=== PATIENT | female | born 1940 | race Caucasian/White ===

== ENCOUNTER → 2016-05-18 | Outpatient (CLI) | payer BC ==
[~2016-05-18] MED LIST: DMD20 PO; LISI-461 PO; MULT-188 PO; VERA1TAB PO
[2016-05-18 16:48] LABS: HEMATOCRIT 38.1 % (37-47); MEAN CELL VOLUME 84.3 fL (80-100); MEAN CORPUSCULAR HEMOGLOBIN 29.4 pg (25-34); MEAN CORPUSCULAR HGB CONC 34.9 g/dl (32-36); MEAN PLATELET VOLUME 10.3 fL (7.4-10.4); PLATELET COUNT 208 K/uL (130-400); RED BLOOD COUNT 4.52 M/uL (4.2-5.4); WHITE BLOOD COUNT 6.98 K/uL (4.8-10.8)
== END | disposition home or self-care (01) ==
LOC: C.LAB1850 15:16
PROVIDERS: ATTEND Internal Medicine
DX: K62.5 Hemorrhage of anus and rectum (principal)

== ENCOUNTER → 2016-12-09 | Outpatient (CLI) | payer BC ==
--- NOTE | 2016-12-10 13:54 | MAMMOGRAPHY REPORT ---
BILATERAL DIGITAL SCREENING MAMMOGRAM WITH CAD: 12/09/2016 CLINICAL HISTORY: Routine screening. Patient has no complaints. TECHNIQUE: Bilateral CC and MLO views were obtained. Current study was also evaluated with a Compute r Aided Detection (CAD) system. COMPARISON: Comparison is made to exams dated: 12/09/2015 mammogram, 11/28/2014 mammogram, 11/23/2013 m ammogram, 10/25/2012 mammogram, 10/07/2011 mammogram, and 09/16/2010 mammogram - [facility] nter. BREAST COMPOSITION: There are scattered areas of fibroglandular density in both breasts. FINDINGS: There are stable benign lymph nodes in the upper outer posterior right breast. No suspicio us mass, architectural distortion or cluster of suspicious microcalcifications is seen. IMPRESSION: ACR BI-RADS CATEGORY 1: NEGATIVE There is no mammographic evidence of malignancy. A 1 year screening mammogram is recommended. The pa tient will receive written notification of the results. Approximately 10% of breast cancers are not detected with mammography. A negative mammographic report should not delay biopsy if a clinically suggestive mass is present. Cristy Olivares M.D. ay/:12/09/2016 14:03:30 Manager News: Tennille MAURICE([place])([place])([place]), [facility] letter sent: Normal 1/2 BI-RADS Code: ACR BI-RADS Category 1: Negative
== END | disposition home or self-care (01) ==
LOC: C.MAMM 13:19
PROVIDERS: ATTEND Obstetrics & Gynecology
DX: Z12.31 Encounter for screening mammogram for malignant neoplasm of breast (principal)

== ENCOUNTER → 2017-05-10 | Outpatient (CLI) | payer BC ==
--- NOTE | 2017-05-10 14:56 | DIAGNOSTIC IMAGING REPORT ---
L HAND MIN 3 VIEWS ROUTINE, R HAND MIN 3 VIEWS ROUTINE CLINICAL HISTORY: 77 years-old Female presenting with M79.644 Bilateral thumb [id number]. TECHNIQUE: Frontal, oblique, and lateral views of the right and left hands were obtained. COMPARISON: None. FINDINGS: Right hand: Osteophytosis, mild joint space loss, and subchondral sclerosis and cystic change evident at the first carpometacarpal articulation. Osteophytosis and joint space loss also evident at the distal interphalangeal joint of the second finger. No acute fracture or malalignment. No radiographic soft tissue abnormality. Left hand: Osteophytosis and joint space loss at the distal interphalangeal joint of the second finger. Only minimal osteophytosis and joint space loss evident at the first carpometacarpal articulation. No acute fracture or malalignment. No radiographic soft tissue abnormality. IMPRESSION: 1. Degenerative changes at the first carpometacarpal articulations in the bilateral hands, right greater than left, characteristic of posterior arthritis. 2. Degenerative changes of the distal interphalangeal joints of the second fingers, also characteristic of osteoarthritis. Electronically signed by: Bird Zacarias M.D. 05/10/2017 2:55 PM Dictated Date/Time: 05/10/2017 2:53 PM
== END | disposition home or self-care (01) ==
LOC: C.RAD1850 14:40
PROVIDERS: ATTEND Internal Medicine
DX: M79.644 Pain in right finger(s) (principal); M79.645 Pain in left finger(s); M19.041 Primary osteoarthritis, right hand; M19.042 Primary osteoarthritis, left hand; M18.0 Bilateral primary osteoarthritis of first carpometacarpal joints

== ENCOUNTER 2021-08-16 15:59 | Inpatient (IN) ==
--- NOTE | 2021-08-16 16:02 | Emergency Department Note ---
Impression & Plan Rhabdomyolysis, Fall, Elevated troponin I level ED Provider Note NAME: CESILIA DUNHAM AGE: 81 SEX: F : 1940 ARRIVES VIA: Ambulance INFORMANT: [Patient][, ] ED PROVIDER(S): [Temo Marc MD] Chief Complaint: Fall HPI: Patient was portably found down after a fall that occurred around 10 AM. Patient states that she went out to walk her dog as she normally does but it is a fairly large dog [place] As[place]io breed and pulled her down and sometimes the dog sees deer. Patient reportedly had intermittent reports of some mid abdominal back pain or event left hip pain. Patient currently only complains of abdominal discomfort. No nausea or vomiting. Patient denies any known LOC. Patient Nuys any chest pains or shortness of breath. Patient denies any back pain headache or neck pain. Patient does not believe that she takes blood thinning medications. Patient did not have a BSG checked by EMS prior to arrival. In the room it is 164. I did reach out and speak with the patient's daughter Earnestine was currently in [place]. She states that she believes that the dog chased after a rabbit earlier this morning. The patient's son is supposed to arrive soon thereafter. She does not believe that the patient takes any blood thinning medications. She also states that the patient may have some early signs of dementia and does have some pending neuropsych evaluations as well as pending brain MRI. She does state that the patient does have good and bad days. ROS: See HPI for pertinent positives and negatives. A total of 10 systems were reviewed and otherwise negative. Past medical history: See below Surgical history: See below Social history: See below Physical Exam: GENERAL: Dirt noted over the face, right-sided periorbital ecchymosis but without obvious proptosis. C-collar in place. EYE EXAM: Normal conjunctiva. PERRL, no anisocoria and EOM's grossly intact w/o pain. right-sided periorbital ecchymosis but without obvious proptosis. [OROPHARYNX: Moist mucus membranes. Grossly normal dentition. [No exudate, posterior pharynx is clear, no tonsillar/uvular deviation or swelling. No cervical adenopathy, no submental, submandibular, or sublingual swelling.]] NECK: Supple, no nuchal rigidity, no adenopathy, non-tender. No signs of meningismus. Trachea midline, no midline C-spine TTP. Chest: No reproducible chest wall pain for the chest or bruising. LUNGS: Clear to auscultation. Normal chest wall mechanics. HEART: NSR, no MRG. ABDOMEN: Abdomen soft, mild discomfort in the mid abdomen, not peritonitic, normo-active bowel sounds, no masses, no rebound or guarding. BACK: Denies midline thoracic and lumbar discomfort. SKIN: Skin discoloration and bruising to the right elbow and forearm. UPPER EXTREMITIES: Upper extremities are grossly normal. Good range of motion, slight discomfort to the right forearm and elbow but without obvious deformity. LOWER EXTREMITIES: Mild discomfort to the left hip with good range of motion, bilateral lower extremities appearing over to be symmetric in length. NEURO EXAM: A&O x3, cranial nerves II-XII grossly intact, normal speech, moves all 4 extremities on command w/o issue. Differential diagnoses: Fracture, dislocation, contusion, intra-abdominal, pneumothorax, intrathoracic, intracranial, neurologic, compartment syndrome, rhabdomyolysis, as well as other pathologies. Course: Patient was seen and evaluated the bedside. Full history physical exam was performed. [EKG interpreted by me] Normal sinus rhythm, rate of 74, normal intervals, left axis deviation, no obvious ST elevations, T wave version in V2. Left axis and T wave inversion or change from comparison EKG completed February 01, 1994. Imaging Studies: See Below [Cardiac monitoring: An order was placed for continuous cardiac monitoring. The monitor shows a rate of [] with [] rhythm.] MDM: Patient was seen due to concern for a fall with associated trauma along with a prolonged downtime. Blood work was obtained along with CT head cervical spine face chest abdomen thoracic and lumbar spine. The patient did have a CK ordered and was given IV fluids. Patient's blood work showed a normal white count H&H and platelet count. The patient did have mild hypokalemia noted. The patient was noted to have an elevated total CK at 1200 with a troponin of 155. The patient denies any chest pain or shortness of breath. COVID-negative. The patient's plain films and CTs were unremarkable. I did convey this to the family member at bedside. Patient CTs did show old rib fractures but nothing acute. I did convey the findings to the patient's son who was at bedside. Patient C-spine was cleared. I did speak with the hospitalist service Radha Sofia PA-C and the patient was admitted by Dr. Nelson. Past Med/Surg History Medical History History of vitamin D deficiency Hyperparathyroidism Hypertension Pulsatile tinnitus Surgical History S/P cataract surgery S/P cholecystectomy S/P dilation and curettage S/P tubal ligation Family History Brother Hypertension Denies family history of Ovarian cancer Prostate cancer Myocardial infarction Breast cancer Colorectal cancer Social History Smoking Status: Unknown if ever smoked Hx Alcohol Use: No Hx Substance Use: No Preferred Language: Barbadian Communication Ability: Effective Visual Impairment: No Limitations Hearing Ability: Normal marital status: Current Living Situation: Alone current occupational status: retired Feels Safe at Home: Yes Dental Care, Regularly: Yes Physical Activity Frequency: Daily Physical Activity Frequency Comment: walking Seatbelt Use: always Sunscreen Use: Yes Allergies Allergies Allergy/AdvReac Type Severity Reaction Status Date / Time clarithromycin Allergy Intermediate SICK AND Verified 08/16/21 17:48 HEADACHE doxycycline Allergy Intermediate SICK AND Verified 08/16/21 17:48 HEADACHE erythromycin base Allergy Intermediate HEADACHE, Verified 08/16/21 17:48 PAIN pollen extracts Allergy Intermediate itchy Verified 08/16/21 17:48 eyes, sneezing, runny nose nitrofurantoin Allergy Unknown Unknown rxn Verified 08/16/21 17:48 oxycodone Allergy Unknown Unknown rxn Verified 08/16/21 17:48 theophylline Allergy Unknown Unknown rxn Verified 08/16/21 17:48 tolmetin Allergy Unknown Unknown Verified 08/16/21 17:48 amoxicillin [From Augmentin] AdvReac Intermediate abd cramps Verified 08/16/21 17:48 / diarrhea clavulanic acid AdvReac Intermediate abd cramps Verified 08/16/21 17:48 [From Augmentin] / diarrhea Home Meds Previous Rx's Medication Instructions Recorded fluticasone propionate 50 2 spray INTNAS DAILY PRN #3 btl 03/21/20 mcg/actuation nasal spray,suspension torsemide 10 mg tablet 10 mg PO DAILY #90 tab 08/30/20 albuterol sulfate 90 mcg/actuation 2 puff INH Q6H PRN #3 inhaler 12/05/20 aerosol inhaler (ProAir HFA) glimepiride 2 mg tablet 2 mg PO QAM #30 tab 02/24/21 lisinopril 10 mg tablet 10 mg PO DAILY #90 tab 08/07/21 escitalopram oxalate 10 mg tablet 15 mg PO DAILY #30 tab 08/15/21 verapamil 240 mg 24 hr 240 mg PO BID #180 cap 08/15/21 capsule,extended release Results & Data (ED) Vital Signs Vital Signs - 24 hr 08/16/21 16:06 08/16/21 16:16 Temperature 36.6 C Temperature Source Oral Pulse Rate 80 Respiratory Rate 16 Blood Pressure 162/87 H Blood Pressure Mean 112 Pulse Oximetry 97 98 Oxygen Delivery Method Room Air Room Air Sepsis Recent Fever Within 48 Hours No Sepsis New/Unexplained Change in Mental Status Yes Sepsis Action Taken by Nursing No Action Required Home Medications Current Medication List: was personally reviewed by me Laboratory Data Attestation: I reviewed the patient's lab results. Result diagrams: 08/16/21 16:14 08/16/21 16:14 Lab Results 08/16/21 08/16/21 08/16/21 Range/Units 16:11 16:14 16:14 WBC 10.54 (4.8-10.8) K/uL RBC 4.66 (4.2-5.4) M/uL Hgb 13.9 (12.0-16.0) g/dL POC Hgb (12.0-16.0) g/dl Hct 39.9 (37-47) % POC Hct (37-47) % MCV 85.6 (80-100) fL MCH 29.8 (25-34) pg MCHC 34.8 (32-36) g/dL RDW Std Deviation 37.8 (36.4-46.3) fL RDW Coeff of Bong 12.1 (11.5-14.5) % Plt Count 186 (130-400) K/uL MPV 10.4 (7.4-10.4) fL Immature Gran % (Auto) 0.2 % Neut % (Auto) 83.2 % Lymph % (Auto) 7.1 % Moody % (Auto) 9.4 % Eos % (Auto) 0.0 % Baso % (Auto) 0.1 % Neut # (Auto) 8.77 H (1.4-6.5) K/uL Lymph # (Auto) 0.75 L (1.2-3.4) K/uL Moody # (Auto) 0.99 H (0.11-0.59) K/uL Eos # (Auto) 0.00 (0-0.5) K/uL Baso # (Auto) 0.01 (0-0.2) K/uL Immature Gran # (Auto) 0.02 (0.00-0.02) K/uL POC Sodium (135-144) mmol/L Sodium 137 (136-145) mmol/L POC Potassium (3.3-5.0) mmol/L Potassium 3.3 L (3.5-5.1) mmol/L POC Chloride (101-112) mmol/L Chloride 104 (98-107) mmol/L Carbon Dioxide 25 (21-32) mmol/L POC Total CO2 (24-31) mmol/L Anion Gap 8 (3-11) POC Anion Gap (16-25) mmol/L POC BUN (7-18) mg/dl BUN 11 (6-23) mg/dl Creatinine 0.61 (0.6-1.2) mg/dl POC Creatinine (0.6-1.3) mg/dl Est Cr Clr Drug Dosing 75.2 ml/min Est GFR ( Amer) 98.5 ml/min Est GFR (Non-Af Amer) 85.0 ml/min BUN/Creatinine Ratio 18.0 (10-20) Glucose 177 H (70-99(Fasting)) mg/dl POC Glucose 166 H (70-99) mg/dl POC Glucose (other) (70-99) mg/dl Calcium 10.1 (8.5-10.1) mg/dl POC Ioniz Calcium Ryan (1.12-1.32) mmol/l Total Bilirubin 1.4 H (0.2-1.0) mg/dl AST 43 H (13-39) U/L ALT 26 (7-52) U/L Alkaline Phosphatase 61 (34-104) U/L Total Creatine Kinase 1231 H (26-192) U/L Troponin I High Sens 155.4 H* (0-14) pg/ml Total Protein 6.9 (6.0-8.3) gm/dl Albumin 4.3 (3.4-5.0) gm/dl Globulin 2.6 (2.5-4.0) gm/dl Albumin/Globulin Ratio 1.7 (0.9-2) SARS-CoV-2, RNA, NAAT (NEGATIVE) 08/16/21 08/16/21 Range/Units 16:21 16:24 WBC (4.8-10.8) K/uL RBC (4.2-5.4) M/uL Hgb (12.0-16.0) g/dL POC Hgb 12.9 (12.0-16.0) g/dl Hct (37-47) % POC Hct 38 (37-47) % MCV (80-100) fL MCH (25-34) pg MCHC (32-36) g/dL RDW Std Deviation (36.4-46.3) fL RDW Coeff of Bong (11.5-14.5) % Plt Count (130-400) K/uL MPV (7.4-10.4) fL Immature Gran % (Auto) % Neut % (Auto) % Lymph % (Auto) % Moody % (Auto) % Eos % (Auto) % Baso % (Auto) % Neut # (Auto) (1.4-6.5) K/uL Lymph # (Auto) (1.2-3.4) K/uL Moody # (Auto) (0.11-0.59) K/uL Eos # (Auto) (0-0.5) K/uL Baso # (Auto) (0-0.2) K/uL Immature Gran # (Auto) (0.00-0.02) K/uL POC Sodium 138 (135-144) mmol/L Sodium (136-145) mmol/L POC Potassium 3.3 (3.3-5.0) mmol/L Potassium (3.5-5.1) mmol/L POC Chloride 103 (101-112) mmol/L Chloride (98-107) mmol/L Carbon Dioxide (21-32) mmol/L POC Total CO2 26 (24-31) mmol/L Anion Gap (3-11) POC Anion Gap 13.0 L (16-25) mmol/L POC BUN 9 (7-18) mg/dl BUN (6-23) mg/dl Creatinine (0.6-1.2) mg/dl POC Creatinine 0.5 L (0.6-1.3) mg/dl Est Cr Clr Drug Dosing ml/min Est GFR ( Amer) ml/min Est GFR (Non-Af Amer) ml/min BUN/Creatinine Ratio (10-20) Glucose (70-99(Fasting)) mg/dl POC Glucose (70-99) mg/dl POC Glucose (other) 179 H (70-99) mg/dl Calcium (8.5-10.1) mg/dl POC Ioniz Calcium Ryan 1.32 (1.12-1.32) mmol/l Total Bilirubin (0.2-1.0) mg/dl AST (13-39) U/L ALT (7-52) U/L Alkaline Phosphatase (34-104) U/L Total Creatine Kinase (26-192) U/L Troponin I High Sens (0-14) pg/ml Total Protein (6.0-8.3) gm/dl Albumin (3.4-5.0) gm/dl Globulin (2.5-4.0) gm/dl Albumin/Globulin Ratio (0.9-2) SARS-CoV-2, RNA, NAAT NEGATIVE (NEGATIVE) Administered Medications Insulin Aspart (Insulin Aspart Per Unit) 0 units SC ACHS DAWN Stop: 09/15/21 22:23 Last Admin: 08/16/21 22:44 Dose: Not Given Documented by: [id number] Cosigned by: [id number] Verapamil HCl (Verapamil Hcl 240 Mg Tabcr) 240 mg PO BID DAWN Stop: 09/15/21 22:23 Last Admin: 08/16/21 22:59 Dose: 240 mg Documented by: [id number] Discontinued Medications Sodium Chloride (Nss 1000ml) 1,000 mls @ 999 mls/hr IV .Q1H1M DAWN Stop: 08/16/21 17:15 Last Infusion: 08/16/21 17:30 Dose: 0 mls/hr Documented by: [id number] Admin: 08/16/21 16:26 Dose: 999 mls/hr Documented by: [id number] Sodium Chloride (Nss 1000ml) 1,000 mls @ 999 mls/hr IV .Q1H1M ONE Stop: 08/16/21 18:01 Last Admin: 08/16/21 22:45 Dose: Not Given Documented by: [id number] Ioversol (Optiray 320 100ml) 94 ml IV ONCE ONE Stop: 08/16/21 17:12 Last Admin: 08/16/21 17:11 Dose: 94 ml Documented by: [id number] Potassium Chloride (Potassium Chloride Crtab 20 Meq Tabcr) 40 meq PO NOW STA Stop: 08/16/21 19:11 Last Admin: 08/16/21 19:35 Dose: 40 meq Documented by: [id number] Imaging Data Radiologist's Impression: Cervical Spine CT 08/16/21 16:13 CT cervical spine wo con CLINICAL HISTORY: Trauma TECHNIQUE: Multidetector row helical CT of the cervical spine was performed without administration of intravenous contrast. Coronal and sagittal reformations were obtained. Automated dose lowering techniques and/or adjustment according to patient size were utilized for this exam. Comparison: None available at the time of this dictation. FINDINGS: No acute fractures or subluxations are identified. Degenerative changes are seen in the visualized spine. The alignment is normal. Soft tissues are unremarkable. Calcification of the transverse ligament is seen. IMPRESSION: Degenerative changes without evidence of acute bony injury. ACT 112: Negative or not required by law. Electronically signed by: Jake Ragsdale M.D. 08/16/2021 5:[address] 08/16/21 16:13 CT chest diagnostic w con, CT thoracic spine w con CLINICAL HISTORY: Trauma TECHNIQUE: Multidetector row helical CT of the chest was performed with intravenous contrast. Coronal and sagittal reformations were obtained. Automated dose lowering techniques and/or adjustment according to patient size were utilized for this exam. Comparison: None available at the time of this dictation. FINDINGS: Lungs and pleura: Atelectasis versus scarring is seen in the dependent portions of the lungs. Heart and pericardium: Heart size is normal. No pericardial effusion. Vessels: The pulmonary trunk is enlarged measuring 32 mm. Mediastinum and sheri: Subcentimeter lymph nodes are seen. Chest wall and lower neck: Unremarkable. Abdomen: For findings below the diaphragm, please refer to CT of the abdomen dated the same. Bones: Degenerative changes of the thoracic spine. Old healed rib fractures are seen. IMPRESSION: Old healed rib fractures are seen. No evidence of acute fracture is noted. ACT 112: Negative or not required by law. Electronically signed by: Jake Ragsdale M.D. 08/16/2021 5:[address] 08/16/21 16:13 CT facial bones wo con CLINICAL HISTORY: Trauma TECHNIQUE: Multidetector row helical CT of the maxillofacial bones was performed without administration of intravenous contrast, and processed with bone and soft tissue algorithms. Coronal and sagittal reformations were obtained. Automated dose lowering techniques and/or adjustment according to patient size were utilized for this exam. Comparison: None available at the time of this dictation. FINDINGS: Nasal bones are normal. The mandible is intact. The temporomandibular joints are anatomically aligned. Pterygoid plates are intact. Zygomatic arches are intact. The globes are normal and symmetric, without proptosis, obvious disruption or lens dislocation. There is no orbital radiopaque foreign body. The orbital hope are intact. The retrobulbar fat is without evidence of disruption. Extraocular muscles are normal and symmetric. Optic nerve sheath complexes are normal in course and caliber. Imaged portions of the paranasal sinuses and mastoid air cells are clear. Lacerations are noted most prominently in the right periorbital soft tissues. IMPRESSION: No acute facial fracture. Facial lacerations are noted. ACT 112: Negative or not required by law. Electronically signed by: Jake Ragsdale M.D. 08/16/2021 5:38 PM Abdomen/Pelvis CT 08/16/21 16:14 CT abd pelvis IV con only, CT lumbar spine w con CLINICAL HISTORY: Trauma TECHNIQUE: Helical axial images of the abdomen and pelvis were obtained and displayed. Automated dose lowering techniques and/or adjustment according to patient size were utilized for this exam. This exam was performed with intravenous contrast. CT DOSE: 2351.65 mGy.cm COMPARISON: None available at the time of this dictation. FINDINGS: Lower chest: For findings above the diaphragm, please see CT chest performed same day. Liver: Unremarkable. No focal lesions are seen. Gallbladder and biliary tree: Patient is status post cholecystectomy. Physiologic prominence of the biliary ducts is noted. Pancreas: Unremarkable, no focal lesions. Spleen: Unremarkable. Adrenals: Bilateral adrenal thickening is noted. Kidneys and ureters: Bilateral pelviectasis is seen. No hydronephrosis. Bladder: Unremarkable. Reproductive organs: Unremarkable. Bowel: Diverticulosis is seen without evidence of diverticulitis. Lymph nodes Retroperitoneal: Unremarkable. Mesenteric: Unremarkable. Pelvic: Unremarkable. Peritoneum: Normal. Vessels: Unremarkable. Abdominal wall: Lobular fluid collection in the left lateral hip soft tissues and lateral gluteus musculature. Bones: Degenerative changes in the visualized spine. IMPRESSION: No evidence of acute abnormalities, in particular no fracture. Fluid collection in the left lateral soft tissues is likely chronic and may represent lymphangioma or old hematoma. ACT 112: Negative or not required by law. Electronically signed by: Jake Ragsdale M.D. 08/16/2021 6:17 PM Elbow X-Ray 08/16/21 16:14 XR elbow RT min 3V routine CLINICAL HISTORY: s/p fall TECHNIQUE: 3 views of the right elbow were obtained. Comparison: None available at the time of this dictation. FINDINGS: There is no evidence of an acute fracture. Joint spaces are well-preserved. There is no prominence of the anterior or posterior fat pads to suggest an effusion. No soft tissue abnormality is seen. IMPRESSION: No evidence of acute osseous injury. ACT 112: Negative or not required by law. Electronically signed by: Jake Ragsdale M.D. 08/16/2021 6:20 PM Forearm X-Ray 08/16/21 16:14 XR forearm RT 2V CLINICAL HISTORY: fall TECHNIQUE: 2 views of the right forearm were obtained. Comparison: None available at the time of this dictation. FINDINGS: There is no evidence of acute fracture or dislocation. The alignment is anatomic. Joint spaces are well-preserved. No soft tissue abnormality is seen. IMPRESSION: No evidence of acute osseous injury. ACT 112: Negative or not required by law. Electronically signed by: Jake Ragsdale M.D. 08/16/2021 6:22 PM Hip/Pelvis X-Ray 08/16/21 16:14 XR hip LT 2V w pelvis CLINICAL HISTORY: pain post fall TECHNIQUE: 2 views of the right hip and single frontal view of the pelvis were obtained. Comparison: None available at the time of this dictation. FINDINGS: There is no evidence of an acute fracture. Degenerative changes are seen in the hip joint. Contrast is seen in the bladder. No soft tissue abnormality is seen. IMPRESSION: No evidence of acute osseous injury. ACT 112: Negative or not required by law. Electronically signed by: Jake Ragsdale M.D. 08/16/2021 6:[address] 08/16/21 16:14 CT abd pelvis IV con only, CT lumbar spine w con CLINICAL HISTORY: Trauma TECHNIQUE: Helical axial images of the abdomen and pelvis were obtained and displayed. Automated dose lowering techniques and/or adjustment according to patient size were utilized for this exam. This exam was performed with intravenous contrast. CT DOSE: 2351.65 mGy.cm COMPARISON: None available at the time of this dictation. FINDINGS: Lower chest: For findings above the diaphragm, please see CT chest performed same day. Liver: Unremarkable. No focal lesions are seen. Gallbladder and biliary tree: Patient is status post cholecystectomy. Physiologic prominence of the biliary ducts is noted. Pancreas: Unremarkable, no focal lesions. Spleen: Unremarkable. Adrenals: Bilateral adrenal thickening is noted. Kidneys and ureters: Bilateral pelviectasis is seen. No hydronephrosis. Bladder: Unremarkable. Reproductive organs: Unremarkable. Bowel: Diverticulosis is seen without evidence of diverticulitis. Lymph nodes Retroperitoneal: Unremarkable. Mesenteric: Unremarkable. Pelvic: Unremarkable. Peritoneum: Normal. Vessels: Unremarkable. Abdominal wall: Lobular fluid collection in the left lateral hip soft tissues and lateral gluteus musculature. Bones: Degenerative changes in the visualized spine. IMPRESSION: No evidence of acute abnormalities, in particular no fracture. Fluid collection in the left lateral soft tissues is likely chronic and may represent lymphangioma or old hematoma. ACT 112: Negative or not required by law. Electronically signed by: Jake Ragsdale M.D. 08/16/2021 6:[address] 08/16/21 16:14 CT chest diagnostic w con, CT thoracic spine w con CLINICAL HISTORY: Trauma TECHNIQUE: Multidetector row helical CT of the chest was performed with intravenous contrast. Coronal and sagittal reformations were obtained. Automated dose lowering techniques and/or adjustment according to patient size were utilized for this exam. Comparison: None available at the time of this dictation. FINDINGS: Lungs and pleura: Atelectasis versus scarring is seen in the dependent portions of the lungs. Heart and pericardium: Heart size is normal. No pericardial effusion. Vessels: The pulmonary trunk is enlarged measuring 32 mm. Mediastinum and sheri: Subcentimeter lymph nodes are seen. Chest wall and lower neck: Unremarkable. Abdomen: For findings below the diaphragm, please refer to CT of the abdomen dated the same. Bones: Degenerative changes of the thoracic spine. Old healed rib fractures are seen. IMPRESSION: Old healed rib fractures are seen. No evidence of acute fracture is noted. ACT 112: Negative or not required by law. Electronically signed by: Jake Ragsdale M.D. 08/16/2021 5:[address] 08/16/21 17:13 CT head/brain wo con CLINICAL HISTORY: fall Technique: Contiguous axial CT images of the head were acquired from the base of the skull to the vertex without intravenous contrast administration. Images were viewed in brain, subdural and bone windows. Automated dose lowering techniques and/or adjustment according to patient size were utilized for this exam. Comparison: None available at the time of this dictation. Findings: The ventricles, basal cisterns, and cerebral sulci are normal. There is no acute intracranial hemorrhage or evidence of acute territorial infarction. Neither mass effect, shift of the midline structures, nor abnormal extra-axial fluid collections are shown. Imaged portions of the paranasal sinuses and mastoid air cells are clear. The orbits appear normal. There are no acute fractures of the calvaria or scalp swelling. Impression: No acute intracranial hemorrhage, no evidence of acute territorial infarction or other acute intracranial disease process. ACT 112: Negative or not required by law. Electronically signed by: Jake Ragsdale M.D. 08/16/2021 5:42 PM Discharge Plan Visit Data Chief Complaint: Fall Stated Complaint: FALL, ON GROUND OUTSIDE X5 HOURS ED Provider: Temo Marc Discharge Problem: Rhabdomyolysis, Fall, Elevated troponin I level Patient Disposition: Admitted As Inpatient Discharge Instructions Interventions: ED Discharge Assessment Last Done: 08/16/21 21:15 Discharge Problem: Rhabdomyolysis Qualifiers: Encounter type: initial encounter Fall Qualifiers: Encounter type: initial encounter Qualified Code(s): W19.XXXA - Unspecified fall, initial encounter
[2021-08-16] MEDS ORDERED: SODIUM CHLORIDE 0.9% 1000ML 1,000 ML IV SCH (16:15)
[2021-08-16 16:31] LABS: Basophils # (auto) 0.01 K/uL (0-0.2); Basophils % (auto) 0.1 %; Hematocrit (blood only) 39.9 % (37-47); Hemoglobin 13.9 g/dL (12.0-16.0); Immature Granulocytes # (auto) 0.02 K/uL (0.00-0.02); Immature Granulocytes % (auto) 0.2 %; Lymphocytes # (auto) 0.75 K/uL (1.2-3.4); Lymphocytes % (auto) 7.1 %; Mean Corpuscular Hemoglobin 29.8 pg (25-34); Mean Corpuscular Hgb Conc 34.8 g/dL (32-36); Mean Corpuscular Volume 85.6 fL (80-100); Mean Platelet Volume 10.4 fL (7.4-10.4); Monocytes # (auto) 0.99 K/uL (0.11-0.59); Monocytes % (auto) 9.4 %; Neutrophils # (auto) 8.77 K/uL (1.4-6.5); Neutrophils % (auto) 83.2 %; Platelet Count 186 K/uL (130-400); RDW Coefficient of Variation 12.1 % (11.5-14.5); RDW Standard Deviation 37.8 fL (36.4-46.3); Red Blood Count 4.66 M/uL (4.2-5.4); White Blood Count 10.54 K/uL (4.8-10.8)
[2021-08-16 16:36] LABS: iSTAT Creatinine 0.5 mg/dl (0.6-1.3); iSTAT Hemoglobin 12.9 g/dl (12.0-16.0); iSTAT Ionized Calcium 1.32 mmol/l (1.12-1.32); iSTAT Potassium 3.3 mmol/L (3.3-5.0)
[2021-08-16 16:50] LABS: Albumin Globulin Ratio 1.7 (0.9-2); Albumin Level 4.3 gm/dl (3.4-5.0); Bilirubin,Total 1.4 mg/dl (0.2-1.0); Calcium 10.1 mg/dl (8.5-10.1); Creatinine Clr Calc Pharmacy 75.2 ml/min; Est GFR (African American) 98.5 ml/min; Globulin 2.6 gm/dl (2.5-4.0); Potassium 3.3 mmol/L (3.5-5.1); Total Protein 6.9 gm/dl (6.0-8.3)
[2021-08-16 16:56] LABS: Troponin I High Sensitivity 155.4 pg/ml (0-14)
[2021-08-16] MEDS ORDERED: SODIUM CHLORIDE 0.9% 1000ML 1,000 ML IV ONE (17:01)
[2021-08-16] MEDS ORDERED: OPTIRAY 320 100ml IV ONE (17:11)
--- NOTE | 2021-08-16 17:33 | CT Scan Report ---
CT cervical spine wo con CLINICAL HISTORY: Trauma TECHNIQUE: Multidetector row helical CT of the cervical spine was performed without administration of intravenous contrast. Coronal and sagittal reformations were obtained. Automated dose lowering techn iques and/or adjustment according to patient size were utilized for this exam. Comparison: None available at the time of this dictation. FINDINGS: No acute fractures or subluxations are identified. Degenerative changes are seen in the visualized sp ine. The alignment is normal. Soft tissues are unremarkable. Calcification of the transverse ligament is seen. IMPRESSION: Degenerative changes without evidence of acute bony injury. ACT 112: Negative or not required by law. Electronically signed by: Jake Ragsdale M.D. 08/16/2021 5:31 PM
--- NOTE | 2021-08-16 17:39 | CT Scan Report ---
CT facial bones wo con CLINICAL HISTORY: Trauma TECHNIQUE: Multidetector row helical CT of the maxillofacial bones was performed without administrati on of intravenous contrast, and processed with bone and soft tissue algorithms. Coronal and sagittal reformations were obtained. Automated dose lowering techniques and/or adjustment according to patient size were utilized for this exam. Comparison: None available at the time of this dictation. FINDINGS: Nasal bones are normal. The mandible is intact. The temporomandibular joints are anatomically aligned . Pterygoid plates are intact. Zygomatic arches are intact. The globes are normal and symmetric, without proptosis, obvious disruption or lens dislocation. Ther e is no orbital radiopaque foreign body. The orbital hope are intact. The retrobulbar fat is without evidence of disruption. Extraocular muscles are normal and symmetric. Optic nerve sheath complexes are normal in course and caliber. Imaged portions of the paranasal sinuses and mastoid air cells are clear. Lacerations are noted most prominently in the right periorbital soft tissues. IMPRESSION: No acute facial fracture. Facial lacerations are noted. ACT 112: Negative or not required by law. Electronically signed by: Jake Ragsdale M.D. 08/16/2021 5:38 PM
--- NOTE | 2021-08-16 17:44 | CT Scan Report ---
CT head/brain wo con CLINICAL HISTORY: fall Technique: Contiguous axial CT images of the head were acquired from the base of the skull to the aurelio maurice without intravenous contrast administration. Images were viewed in brain, subdural and [facility]. Automated dose lowering techniques and/or adjustment according to patient size were utilized for this exam. Comparison: None available at the time of this dictation. Findings: The ventricles, basal cisterns, and cerebral sulci are normal. There is no acute intracranial hemorrh age or evidence of acute territorial infarction. Neither mass effect, shift of the midline structures , nor abnormal extra-axial fluid collections are shown. Imaged portions of the paranasal sinuses and mastoid air cells are clear. The orbits appear normal. There are no acute fractures of the calvaria or scalp swelling. Impression: No acute intracranial hemorrhage, no evidence of acute territorial infarction or other acute intracra nial disease process. ACT 112: Negative or not required by law. Electronically signed by: Jake Ragsdale M.D. 08/16/2021 5:42 PM
--- NOTE | 2021-08-16 17:53 | CT Scan Report ---
CT chest diagnostic w con, CT thoracic spine w con CLINICAL HISTORY: Trauma TECHNIQUE: Multidetector row helical CT of the chest was performed with intravenous contrast. Coronal and sagittal reformations were obtained. Automated dose lowering techniques and/or adjustment accord ing to patient size were utilized for this exam. Comparison: None available at the time of this dictation. FINDINGS: Lungs and pleura: Atelectasis versus scarring is seen in the dependent portions of the lungs. Heart and pericardium: Heart size is normal. No pericardial effusion. Vessels: The pulmonary trunk is enlarged measuring 32 mm. Mediastinum and sheri: Subcentimeter lymph nodes are seen. Chest wall and lower neck: Unremarkable. Abdomen: For findings below the diaphragm, please refer to CT of the abdomen dated the same. Bones: Degenerative changes of the thoracic spine. Old healed rib fractures are seen. IMPRESSION: Old healed rib fractures are seen. No evidence of acute fracture is noted. ACT 112: Negative or not required by law. Electronically signed by: Jake Ragsdale M.D. 08/16/2021 5:51 PM
--- NOTE | 2021-08-16 18:19 | CT Scan Report ---
CT abd pelvis IV con only, CT lumbar spine w con CLINICAL HISTORY: Trauma TECHNIQUE: Helical axial images of the abdomen and pelvis were obtained and displayed. Automated dose lowering techniques and/or adjustment according to patient size were utilized for this exam. This e xam was performed with intravenous contrast. CT DOSE: 2351.65 mGy.cm COMPARISON: None available at the time of this dictation. FINDINGS: Lower chest: For findings above the diaphragm, please see CT chest performed same day. Liver: Unremarkable. No focal lesions are seen. Gallbladder and biliary tree: Patient is status post cholecystectomy. Physiologic prominence of the b iliary ducts is noted. Pancreas: Unremarkable, no focal lesions. Spleen: Unremarkable. Adrenals: Bilateral adrenal thickening is noted. Kidneys and ureters: Bilateral pelviectasis is seen. No hydronephrosis. Bladder: Unremarkable. Reproductive organs: Unremarkable. Bowel: Diverticulosis is seen without evidence of diverticulitis. Lymph nodes Retroperitoneal: Unremarkable. Mesenteric: Unremarkable. Pelvic: Unremarkable. Peritoneum: Normal. Vessels: Unremarkable. Abdominal wall: Lobular fluid collection in the left lateral hip soft tissues and lateral gluteus mus culature. Bones: Degenerative changes in the visualized spine. IMPRESSION: No evidence of acute abnormalities, in particular no fracture. Fluid collection in the left lateral s oft tissues is likely chronic and may represent lymphangioma or old hematoma. ACT 112: Negative or not required by law. Electronically signed by: Jake Ragsdale M.D. 08/16/2021 6:17 PM
--- NOTE | 2021-08-16 18:21 | XRay Report ---
XR elbow RT min 3V routine CLINICAL HISTORY: s/p fall TECHNIQUE: 3 views of the right elbow were obtained. Comparison: None available at the time of this dictation. FINDINGS: There is no evidence of an acute fracture. Joint spaces are well-preserved. There is no prominence of the anterior or posterior fat pads to suggest an effusion. No soft tissue abnormality is seen. IMPRESSION: No evidence of acute osseous injury. ACT 112: Negative or not required by law. Electronically signed by: Jake Ragsdale M.D. 08/16/2021 6:20 PM
--- NOTE | 2021-08-16 18:23 | XRay Report ---
XR forearm RT 2V CLINICAL HISTORY: fall TECHNIQUE: 2 views of the right forearm were obtained. Comparison: None available at the time of this dictation. FINDINGS: There is no evidence of acute fracture or dislocation. The alignment is anatomic. Joint spaces are we ll-preserved. No soft tissue abnormality is seen. IMPRESSION: No evidence of acute osseous injury. ACT 112: Negative or not required by law. Electronically signed by: Jake Ragsdale M.D. 08/16/2021 6:22 PM
--- NOTE | 2021-08-16 18:24 | XRay Report ---
XR hip LT 2V w pelvis CLINICAL HISTORY: pain post fall TECHNIQUE: 2 views of the right hip and single frontal view of the pelvis were obtained. Comparison: None available at the time of this dictation. FINDINGS: There is no evidence of an acute fracture. Degenerative changes are seen in the hip joint. Contrast i s seen in the bladder. No soft tissue abnormality is seen. IMPRESSION: No evidence of acute osseous injury. ACT 112: Negative or not required by law. Electronically signed by: Jake Ragsdale M.D. 08/16/2021 6:23 PM
--- NOTE | 2021-08-16 18:45 | History & Physical Report ---
Date of Service August 16, 2021 Assessment & Plan (1) Rhabdomyolysis: Plan: - CK 1231, after being down in sun for 2-4 hours. - Rehydrate with IVF and recheck CK, BMP in AM. (2) Elevated troponin: Plan: - HS trop 155, without EkG changes, chest pain. - Trend Q4h x2, EKG with any new chest pain. (3) DM2 (diabetes mellitus, type 2): Plan: - Hold glimepiride, place on SSI with accuchecks achs. - A1c last checked in July --> 6.4% - Diabetic diet. (4) Hypertension: Plan: - Continue lisinopril and verapamil. (5) Allergic rhinitis: Plan: - Cotininue Flonase, Albuterol prn for SOB. (6) Anxiety: Plan: - Continue Lexapro. Plan: - Admit to med/tele. - SCDs for DVT ppx. - Full Code. History of Present Illness Chief Complaint: fall at home and down on ground for several hours Primary Care Provider: Slava Barksdale MD Mary Miner is an 81 y/o female with PMH of hypertension, diabetes, asthma, allergic rhinitis, OA, anxiety, and early stages of dementia who presents today for evaluation after a fall. Patient was out with her dog today, unsure exactly how she fell with her dog dragged her or she tripped but regardless patient was down on her porch for 2-4 hours before her son arrived to her home and found her like this. She is complaining of back pain, which is chronic issue for her otherwise no pain elsewhere, no chest pain, palpitations, shortness of breath, abdominal pain. Labs significant for HS trop 155.4, CK 1231, potassium 3.3, T bili 1.4. Imaging unrevealing for any fractures, bleeds, or other acute process. Allergies Allergy/AdvReac Type Severity Reaction Status Date / Time clarithromycin Allergy Intermediate SICK AND Verified 08/16/21 17:48 HEADACHE doxycycline Allergy Intermediate SICK AND Verified 08/16/21 17:48 HEADACHE erythromycin base Allergy Intermediate HEADACHE, Verified 08/16/21 17:48 PAIN pollen extracts Allergy Intermediate itchy Verified 08/16/21 17:48 eyes, sneezing, runny nose nitrofurantoin Allergy Unknown Unknown rxn Verified 08/16/21 17:48 oxycodone Allergy Unknown Unknown rxn Verified 08/16/21 17:48 theophylline Allergy Unknown Unknown rxn Verified 08/16/21 17:48 tolmetin Allergy Unknown Unknown Verified 08/16/21 17:48 amoxicillin [From Augmentin] AdvReac Intermediate abd cramps Verified 08/16/21 17:48 / diarrhea clavulanic acid AdvReac Intermediate abd cramps Verified 08/16/21 17:48 [From Augmentin] / diarrhea Home Medications Medication Instructions Recorded Confirmed Type fluticasone propionate 50 2 spray INTNAS DAILY PRN #3 btl 03/21/20 08/16/21 Rx mcg/actuation nasal spray,suspension torsemide 10 mg tablet 10 mg PO DAILY #90 tab 08/30/20 08/16/21 Rx albuterol sulfate 90 mcg/actuation 2 puff INH Q6H PRN #3 inhaler 12/05/20 08/16/21 Rx aerosol inhaler (ProAir HFA) glimepiride 2 mg tablet 2 mg PO QAM #30 tab 02/24/21 08/16/21 Rx lisinopril 10 mg tablet 10 mg PO DAILY #90 tab 08/07/21 08/16/21 Rx escitalopram oxalate 10 mg tablet 15 mg PO DAILY #30 tab 08/15/21 08/16/21 Rx verapamil 240 mg 24 hr 240 mg PO BID #180 cap 08/15/21 08/16/21 Rx capsule,extended release Past Med/Surg History Medical History History of vitamin D deficiency Hyperparathyroidism Hypertension Pulsatile tinnitus Surgical History S/P cataract surgery S/P cholecystectomy S/P dilation and curettage S/P tubal ligation Family History Brother Hypertension Denies family history of Ovarian cancer Prostate cancer Myocardial infarction Breast cancer Colorectal cancer Social History Smoking Status: Unknown if ever smoked Hx Alcohol Use: No Hx Substance Use: No Preferred Language: Algerian Communication Ability: Effective Visual Impairment: No Limitations Hearing Ability: Normal marital status: Current Living Situation: Alone current occupational status: retired Feels Safe at Home: Yes Dental Care, Regularly: Yes Physical Activity Frequency: Daily Physical Activity Frequency Comment: walking Seatbelt Use: always Sunscreen Use: Yes Review of Systems Review of Systems: Constitutional: No fever/chills, weakness, fatigue, myalgias, anorexia, night sweats Eyes: No diplopia, no worsening or blurred vision ENT: normal hearing, no trouble swallowing Respiratory: No cough, sputum, dyspnea at rest or on exertion Cardiovascular: No chest pain, tightness or palpitations Abdomen: No pain, nausea, vomiting, diarrhea or constipation : Denies dysuria, hematuria, increased urgency/frequency, urinary retention Musculoskeletal: low back pain; otherwise No joint pain, calf pain, swelling Neurologic: No weakness, numbness/tingling, or balance problems Psychiatric: No anxiety or depression Skin: No rash or itch Physical Exam Physical Exam: General: awake, alert, no apparent distress, right eye with periorbital ecchymosis and patient's face covered in dirt from fall Head: Normocephalic, atraumatic ENT: PERRL, EOMI, no pharyngeal exudate, mucous membranes moist Chest: Clear to auscultation, on room air, no adventitious breath sounds Cardiac: Regular rate and rhythm, no murmur, no JVD, normal peripheral pulses, good capillary refill Abdominal: NABS x 4 quadrants, soft, nontender to palpation, no rebound, guarding or tenderness Extremities: Normal inspection, no peripheral edema or erythema, calfs nontender to palpation Psych: Normal mood and affect Neuro: AAO x 3, strength intact bilaterally and rated 5/5, no motor deficits, speech is clear, no peripheral sensory deficits Skin: no rash or erythema Results & Data Results & Data ([facility]) Vital Signs (Past 12 Hours) Vital Signs Temp Pulse Resp BP Pulse Ox 08/16/21 16:16 98 08/16/21 16:06 36.6 C 80 16 162/87 H 97 Laboratory Results Abnormal lab results 08/16/21 08/16/21 08/16/21 Range/Units 16:11 16:14 16:14 Neut # (Auto) 8.77 H (1.4-6.5) K/uL Lymph # (Auto) 0.75 L (1.2-3.4) K/uL [place] # (Auto) 0.99 H (0.11-0.59) K/uL Potassium 3.3 L (3.5-5.1) mmol/L POC Anion Gap (16-25) mmol/L POC Creatinine (0.6-1.3) mg/dl Glucose 177 H (70-99(Fasting)) mg/dl POC Glucose 166 H (70-99) mg/dl POC Glucose (other) (70-99) mg/dl Total Bilirubin 1.4 H (0.2-1.0) mg/dl AST 43 H (13-39) U/L Total Creatine Kinase 1231 H (26-192) U/L Troponin I High Sens 155.4 H* (0-14) pg/ml 08/16/21 Range/Units 16:24 Neut # (Auto) (1.4-6.5) K/uL Lymph # (Auto) (1.2-3.4) K/uL [place] # (Auto) (0.11-0.59) K/uL Potassium (3.5-5.1) mmol/L POC Anion Gap 13.0 L (16-25) mmol/L POC Creatinine 0.5 L (0.6-1.3) mg/dl Glucose (70-99(Fasting)) mg/dl POC Glucose (70-99) mg/dl POC Glucose (other) 179 H (70-99) mg/dl Total Bilirubin (0.2-1.0) mg/dl AST (13-39) U/L Total Creatine Kinase (26-192) U/L Troponin I High Sens (0-14) pg/ml Diagnostic Findings Cervical Spine CT 08/16/21 16:13 CT cervical spine wo con CLINICAL HISTORY: Trauma TECHNIQUE: Multidetector row helical CT of the cervical spine was performed without administration of intravenous contrast. Coronal and sagittal reformations were obtained. Automated dose lowering techniques and/or adjustment according to patient size were utilized for this exam. Comparison: None available at the time of this dictation. FINDINGS: No acute fractures or subluxations are identified. Degenerative changes are seen in the visualized spine. The alignment is normal. Soft tissues are unremarkable. Calcification of the transverse ligament is seen. IMPRESSION: Degenerative changes without evidence of acute bony injury. ACT 112: Negative or not required by law. Electronically signed by: Jake Ragsdale M.D. 08/16/2021 5:[address] 08/16/21 16:13 CT chest diagnostic w con, CT thoracic spine w con CLINICAL HISTORY: Trauma TECHNIQUE: Multidetector row helical CT of the chest was performed with intravenous contrast. Coronal and sagittal reformations were obtained. Automated dose lowering techniques and/or adjustment according to patient size were utilized for this exam. Comparison: None available at the time of this dictation. FINDINGS: Lungs and pleura: Atelectasis versus scarring is seen in the dependent portions of the lungs. Heart and pericardium: Heart size is normal. No pericardial effusion. Vessels: The pulmonary trunk is enlarged measuring 32 mm. Mediastinum and sheri: Subcentimeter lymph nodes are seen. Chest wall and lower neck: Unremarkable. Abdomen: For findings below the diaphragm, please refer to CT of the abdomen dated the same. Bones: Degenerative changes of the thoracic spine. Old healed rib fractures are seen. IMPRESSION: Old healed rib fractures are seen. No evidence of acute fracture is noted. ACT 112: Negative or not required by law. Electronically signed by: Jake Ragsdale M.D. 08/16/2021 5:[address] 08/16/21 16:13 CT facial bones wo con CLINICAL HISTORY: Trauma TECHNIQUE: Multidetector row helical CT of the maxillofacial bones was performed without administration of intravenous contrast, and processed with bone and soft tissue algorithms. Coronal and sagittal reformations were obtained. Automated dose lowering techniques and/or adjustment according to patient size were utilized for this exam. Comparison: None available at the time of this dictation. FINDINGS: Nasal bones are normal. The mandible is intact. The temporomandibular joints are anatomically aligned. Pterygoid plates are intact. Zygomatic arches are intact. The globes are normal and symmetric, without proptosis, obvious disruption or lens dislocation. There is no orbital radiopaque foreign body. The orbital hope are intact. The retrobulbar fat is without evidence of disruption. Extraocular muscles are normal and symmetric. Optic nerve sheath complexes are normal in course and caliber. Imaged portions of the paranasal sinuses and mastoid air cells are clear. Lacerations are noted most prominently in the right periorbital soft tissues. IMPRESSION: No acute facial fracture. Facial lacerations are noted. ACT 112: Negative or not required by law. Electronically signed by: Jake Ragsdale M.D. 08/16/2021 5:38 PM Abdomen/Pelvis CT 08/16/21 16:14 CT abd pelvis IV con only, CT lumbar spine w con CLINICAL HISTORY: Trauma TECHNIQUE: Helical axial images of the abdomen and pelvis were obtained and displayed. Automated dose lowering techniques and/or adjustment according to patient size were utilized for this exam. This exam was performed with intravenous contrast. CT DOSE: 2351.65 mGy.cm COMPARISON: None available at the time of this dictation. FINDINGS: Lower chest: For findings above the diaphragm, please see CT chest performed same day. Liver: Unremarkable. No focal lesions are seen. Gallbladder and biliary tree: Patient is status post cholecystectomy. Physiologic prominence of the biliary ducts is noted. Pancreas: Unremarkable, no focal lesions. Spleen: Unremarkable. Adrenals: Bilateral adrenal thickening is noted. Kidneys and ureters: Bilateral pelviectasis is seen. No hydronephrosis. Bladder: Unremarkable. Reproductive organs: Unremarkable. Bowel: Diverticulosis is seen without evidence of diverticulitis. Lymph nodes Retroperitoneal: Unremarkable. Mesenteric: Unremarkable. Pelvic: Unremarkable. Peritoneum: Normal. Vessels: Unremarkable. Abdominal wall: Lobular fluid collection in the left lateral hip soft tissues and lateral gluteus musculature. Bones: Degenerative changes in the visualized spine. IMPRESSION: No evidence of acute abnormalities, in particular no fracture. Fluid collection in the left lateral soft tissues is likely chronic and may represent lymphangioma or old hematoma. ACT 112: Negative or not required by law. Electronically signed by: Jake Ragsdale M.D. 08/16/2021 6:17 PM Elbow X-Ray 08/16/21 16:14 XR elbow RT min 3V routine CLINICAL HISTORY: s/p fall TECHNIQUE: 3 views of the right elbow were obtained. Comparison: None available at the time of this dictation. FINDINGS: There is no evidence of an acute fracture. Joint spaces are well-preserved. There is no prominence of the anterior or posterior fat pads to suggest an effusion. No soft tissue abnormality is seen. IMPRESSION: No evidence of acute osseous injury. ACT 112: Negative or not required by law. Electronically signed by: Jake Ragsdale M.D. 08/16/2021 6:20 PM Forearm X-Ray 08/16/21 16:14 XR forearm RT 2V CLINICAL HISTORY: fall TECHNIQUE: 2 views of the right forearm were obtained. Comparison: None available at the time of this dictation. FINDINGS: There is no evidence of acute fracture or dislocation. The alignment is anatomic. Joint spaces are well-preserved. No soft tissue abnormality is seen. IMPRESSION: No evidence of acute osseous injury. ACT 112: Negative or not required by law. Electronically signed by: Jake Ragsdale M.D. 08/16/2021 6:22 PM Hip/Pelvis X-Ray 08/16/21 16:14 XR hip LT 2V w pelvis CLINICAL HISTORY: pain post fall TECHNIQUE: 2 views of the right hip and single frontal view of the pelvis were obtained. Comparison: None available at the time of this dictation. FINDINGS: There is no evidence of an acute fracture. Degenerative changes are seen in the hip joint. Contrast is seen in the bladder. No soft tissue abnormality is seen. IMPRESSION: No evidence of acute osseous injury. ACT 112: Negative or not required by law. Electronically signed by: Jake Ragsdale M.D. 08/16/2021 6:[address] 08/16/21 16:14 CT abd pelvis IV con only, CT lumbar spine w con CLINICAL HISTORY: Trauma TECHNIQUE: Helical axial images of the abdomen and pelvis were obtained and displayed. Automated dose lowering techniques and/or adjustment according to patient size were utilized for this exam. This exam was performed with intravenous contrast. CT DOSE: 2351.65 mGy.cm COMPARISON: None available at the time of this dictation. FINDINGS: Lower chest: For findings above the diaphragm, please see CT chest performed same day. Liver: Unremarkable. No focal lesions are seen. Gallbladder and biliary tree: Patient is status post cholecystectomy. Physiologic prominence of the biliary ducts is noted. Pancreas: Unremarkable, no focal lesions. Spleen: Unremarkable. Adrenals: Bilateral adrenal thickening is noted. Kidneys and ureters: Bilateral pelviectasis is seen. No hydronephrosis. Bladder: Unremarkable. Reproductive organs: Unremarkable. Bowel: Diverticulosis is seen without evidence of diverticulitis. Lymph nodes Retroperitoneal: Unremarkable. Mesenteric: Unremarkable. Pelvic: Unremarkable. Peritoneum: Normal. Vessels: Unremarkable. Abdominal wall: Lobular fluid collection in the left lateral hip soft tissues and lateral gluteus musculature. Bones: Degenerative changes in the visualized spine. IMPRESSION: No evidence of acute abnormalities, in particular no fracture. Fluid collection in the left lateral soft tissues is likely chronic and may represent lymphangioma or old hematoma. ACT 112: Negative or not required by law. Electronically signed by: Jake Ragsdale M.D. 08/16/2021 6:[address] 08/16/21 16:14 CT chest diagnostic w con, CT thoracic spine w con CLINICAL HISTORY: Trauma TECHNIQUE: Multidetector row helical CT of the chest was performed with intravenous contrast. Coronal and sagittal reformations were obtained. Automated dose lowering techniques and/or adjustment according to patient size were utilized for this exam. Comparison: None available at the time of this dictation. FINDINGS: Lungs and pleura: Atelectasis versus scarring is seen in the dependent portions of the lungs. Heart and pericardium: Heart size is normal. No pericardial effusion. Vessels: The pulmonary trunk is enlarged measuring 32 mm. Mediastinum and sheri: Subcentimeter lymph nodes are seen. Chest wall and lower neck: Unremarkable. Abdomen: For findings below the diaphragm, please refer to CT of the abdomen dated the same. Bones: Degenerative changes of the thoracic spine. Old healed rib fractures are seen. IMPRESSION: Old healed rib fractures are seen. No evidence of acute fracture is noted. ACT 112: Negative or not required by law. Electronically signed by: Jake Ragsdale M.D. 08/16/2021 5:[address] 08/16/21 17:13 CT head/brain wo con CLINICAL HISTORY: fall Technique: Contiguous axial CT images of the head were acquired from the base of the skull to the vertex without intravenous contrast administration. Images were viewed in brain, subdural and bone windows. Automated dose lowering techniques and/or adjustment according to patient size were utilized for this exam. Comparison: None available at the time of this dictation. Findings: The ventricles, basal cisterns, and cerebral sulci are normal. There is no acute intracranial hemorrhage or evidence of acute territorial infarction. Neither mass effect, shift of the midline structures, nor abnormal extra-axial fluid collections are shown. Imaged portions of the paranasal sinuses and mastoid air cells are clear. The orbits appear normal. There are no acute fractures of the calvaria or scalp swelling. Impression: No acute intracranial hemorrhage, no evidence of acute territorial infarction or other acute intracranial disease process. ACT 112: Negative or not required by law. Electronically signed by: Jake Ragsdale M.D. 08/16/2021 5:42 PM ECG Additional Comments: Normal sinus rhythm Left axis deviation Abnormal ECG When compared with ECG of 01-FEB-1994 16:39, Non-specific change in ST segment in Lateral leads Nonspecific T wave abnormality no longer evident in Lateral leads Code Status & VTE Plan Code Status Full Code. Supervising Physician Co-Signing Physician Notes Reviewed documentation, discussed with ILAN. Agree with the note above. This is an 81-year-old female who was found down after 4-5 hours after a fall outside. Patient has mild rhabdomyolysis with intact kidney function. Plan is to monitor patient here overnight, hydrate and recheck laboratory work including CPK, renal function, electrolytes. PT/OT evaluation. PG Care Time/CCT Total # of Minutes Spent Total Time Spent with Patient: Total time spent is greater than 50% in coordination of care (as documented) at patient's floor/unit and/or counseling patient: Coding Level of Care Code 40551 Initial Inpt Care Lvl 3 Diagnoses Rhabdomyolysis M62.82 Elevated troponin R77.8 DM2 (diabetes mellitus, type 2) E11.9 Hypertension I10 Allergic rhinitis J30.9 Anxiety F41.9
[2021-08-16] MEDS ORDERED: POTASSIUM CHLORIDE CRTAB 20 MEQ TABCR PO STA (19:10)
[2021-08-16] MEDS ORDERED: CARBOHYDRATES FOR HYPOGLYCEMIA PO PRN (22:24)
[2021-08-16] MEDS ORDERED: FLUTICASONE PROPIONATE NA SPR 16 GM BTL PRN (22:24)
[2021-08-16] MEDS ORDERED: GLUCAGON FOR INJ 1 MG VIAL SQ PRN (22:24)
[2021-08-16] MEDS ORDERED: GLUCOSE 10 TABS/TUBE PO PRN (22:24)
[2021-08-16] MEDS ORDERED: GLUCOSE 40% GEL 15 GM TUBE PO PRN (22:24)
[2021-08-16] MEDS ORDERED: DEXTROSE 50% 50 ML SYRINGE IV PRN (22:24)
[2021-08-16] MEDS ORDERED: POLYETHYLENE (MIRALAX) 17 GM PACK PO PRN (22:24)
[2021-08-16] MEDS ORDERED: ONDANSETRON INJ 2 MG/ML 2 ML VIAL IV PRN (22:24)
[2021-08-16] MEDS ORDERED: ALBUTEROL HFA 8 GM INHALER INH PRN (22:34)
[2021-08-16] MEDS: INSULIN ASPART PER UNIT SC SCH (22:44)
[2021-08-16] MEDS: VERAPAMIL HCL 240 MG TABCR PO SCH (22:59)
[2021-08-16] MEDS: LACTATED RINGER'S 1,000 ML IV SCH (23:19)
[2021-08-17 02:22] LABS: Basophils # (auto) 0.01 K/uL (0-0.2); Basophils % (auto) 0.1 %; Eosinophils # (auto) 0.03 K/uL (0-0.5); Eosinophils % (auto) 0.4 %; Hematocrit (blood only) 37.1 % (37-47); Hemoglobin 12.9 g/dL (12.0-16.0); Immature Granulocytes # (auto) 0.01 K/uL (0.00-0.02); Immature Granulocytes % (auto) 0.1 %; Lymphocytes % (auto) 16.1 %; Mean Corpuscular Hemoglobin 29.9 pg (25-34); Mean Corpuscular Hgb Conc 34.8 g/dL (32-36); Mean Corpuscular Volume 85.9 fL (80-100); Mean Platelet Volume 10.1 fL (7.4-10.4); Monocytes # (auto) 0.92 K/uL (0.11-0.59); Monocytes % (auto) 11.4 %; Neutrophils # (auto) 5.81 K/uL (1.4-6.5); Neutrophils % (auto) 71.9 %; Platelet Count 169 K/uL (130-400); RDW Coefficient of Variation 12.2 % (11.5-14.5); RDW Standard Deviation 38.5 fL (36.4-46.3); Red Blood Count 4.32 M/uL (4.2-5.4); White Blood Count 8.08 K/uL (4.8-10.8)
[2021-08-17 02:42] LABS: BUN Creatinine Ratio 17.3 (10-20); Calcium 9.6 mg/dl (8.5-10.1); Creatinine Clr Calc Pharmacy 87.4 ml/min; Est GFR (African American) 103.9 ml/min; Est GFR (Non-African American) 89.6 ml/min; Potassium 3.5 mmol/L (3.5-5.1)
[2021-08-17 03:06] LABS: Albumin Globulin Ratio 1.8 (0.9-2); Albumin Level 3.7 gm/dl (3.4-5.0); Bilirubin,Total 1.3 mg/dl (0.2-1.0); Globulin 2.1 gm/dl (2.5-4.0); Total Protein 5.8 gm/dl (6.0-8.3)
[2021-08-17] MEDS: LACTATED RINGER'S 1,000 ML IV SCH ×2 (06:38→16:06)
[2021-08-17] MEDS: INSULIN ASPART PER UNIT SC SCH ×4 (08:05→21:17)
[2021-08-17] MEDS: VERAPAMIL HCL 240 MG TABCR PO SCH (08:07)
[2021-08-17] MEDS: ACETAMINOPHEN 325 MG TAB PO PRN ×2 (08:07→18:20)
[2021-08-17] MEDS: lisinopril 10 MG TAB PO SCH (08:08)
[2021-08-17] MEDS: ESCITALOPRAM OXALATE 10 MG TAB PO SCH (08:08)
[2021-08-17] MEDS ORDERED: TORSEMIDE 10 MG TAB PO SCH (09:00)
[2021-08-17 10:49] LABS: Appearance Urine Clear (Clear); Bilirubin Urine Negative (Negative); Blood Urine Negative (Negative); Color Urine Yellow; Glucose Urine UA Negative (Negative); Ketones Urine Trace (Negative); Leukocyte Esterase Urine Negative (Negative); Nitrite Urine Negative (Negative); Protein Urine Negative (Negative); Specific Gravity Urine 1.009 (1.000-1.030); Urobilinogen Urine Negative (Negative)
--- NOTE | 2021-08-17 12:22 | Electrocardiogram Report ---
Test Reason : Blood Pressure : / mmHG Vent. Rate : 074 BPM Atrial Rate : 074 BPM P-R Int : 186 ms QRS Dur : 090 ms QT Int : 406 ms P-R-T Axes : 043 -31 017 degrees QTc Int : 450 ms Normal sinus rhythm Left axis deviation Abnormal ECG When compared with ECG of 01-FEB-1994 16:39, Non-specific change in ST segment in Lateral leads Nonspecific T wave abnormality no longer evident in Lateral leads Confirmed by Logan Caraballo ([id number]) on 08/17/2021 12:22:39 PM Referred By: REFERRED SELF Confirmed By:Maurice Caraballo
--- NOTE | 2021-08-17 12:27 | Electrocardiogram Report ---
Test Reason : Blood Pressure : / mmHG Vent. Rate : 070 BPM Atrial Rate : 070 BPM P-R Int : 240 ms QRS Dur : 092 ms QT Int : 418 ms P-R-T Axes : 021 -32 012 degrees QTc Int : 451 ms Sinus rhythm with 1st degree A-V block Left axis deviation Moderate voltage criteria for LVH, may be normal variant Abnormal ECG When compared with ECG of 16-AUG-2021 16:10, (unconfirmed) ND interval has increased Confirmed by Logan Caraballo ([id number]) on 08/17/2021 12:27:34 PM Referred By: REFERRED SELF Confirmed By:Maurice Caraballo
[2021-08-17 13:03] LABS: Lyme Ab IgG w/WB Rflx Negative (Negative); Lyme Ab IgM w/WB Rflx Negative (Negative)
--- NOTE | 2021-08-17 19:04 | Hospitalist Progress Note ---
Date of Service August 17, 2021 Assessment & Plan (1) Rhabdomyolysis: Plan: 2nd to fall (or syncope leading to fall). Continue IVF. Repeat CPK am. (2) Fall: Plan: uncertain if this was an accidental fall OR if she had syncope leading to a fall work-up thus far negative, but did have Mobitz 1 overnight if higher level AV block is found perhaps an electrical cardiac issue caused the event lyme testing is negative cont tele needs PT/OT uncertain if she will be safe to return home living alone (3) Elevated troponin: Plan: No obvious ischemic symptoms. Reports frequent walks at home without cp/dyspnea. EKG without ischemic changes. She did have runs of asymptomatic mobitz 1 in the middle of the night overnight. Trend trops. Cont tele. Echo. (4) DM2 (diabetes mellitus, type 2): Plan: Hold glimepiride, place on NovologSSI with accuchecks achs. A1c last checked in July --> 6.4%. Diabetic diet. (5) Hypertension: Plan: Continue lisinopril. HOLD verapamil due to Mobitz type 1 rhythm seen. Cont tele. (6) Allergic rhinitis: Plan: Cotininue Flonase (7) Anxiety: Plan: Continue Lexapro. (8) Fever: Plan: temp 38.2 this am checked u/a - not suspicious for UTI blood cx's sent lyme neg anaplasmosis smear negative; send DNA in am consider empiric doxy given she lives in [facility] area consider repeat COVID test with any additional fever spike (get a PCR) (9) Cognitive impairment: Plan: Vit B12 level in July was 248 -- supplement B12 1000mcg daily. Check thiamine level in am, then start thiamine 200mg BID while awaiting level. TSH wnl last month. At minimum has mild cognitive impairment or early dementia. CT head from this admission without acute findings. Will need to keep outpatient appt for neurocognitive testing. (10) Mobitz (type) I (Wenckebach's) atrioventricular block: Plan: seen on tele overnight, lasting (intermittently) a few minutes only. no symptoms - was sleeping. need to watch for higher level block as perhaps higher level block led to fall or syncope?? HOLD verapamil. Echo ordered. Plan: son extensively updated at bedside this afternoon total time today on care activities 45 min Admission and Anticipated Discharge Date Admission Date: August 16, 2021 Subjective saw patient twice today first visit was on AM rounds -- pt is very poor historian does not recall the specific details of what happened before admission (was found by son on the ground outside the porch) she asked "how did I get here?" she is able to tell me [place] and goes for frequent walks with her dog she lives alone she complains of mild headache appetite is ok tele overnight - periods of type 1 Mobitz 2nd visit was late afternoon son was at bedside - he arrived from [place] he had numerous questions about current care plan, her testing, what we found, etc he and his siblings have noted that their mother has had memory loss/cognitive issues for at least 6 months remote memory is intact she apparently is scheduled for neurocognitive testing in September there is a family h/o dementia Review of Systems Review of Systems: gen - had fever this am by report, but patient denies feeling feverish or chills; does endorse fatigue cv - no chest pain pulm - no cough or dyspnea HENT - no runny nose/congestion GI - no nausea/emesis/abd pain - urinary retention/incontinence; needed straight cathing today (750cc + obtained) musculo - denies any joint pains or myalgias Physical Exam Physical Exam: gen - looks chronically ill appearing, confused but pleasant skin - bruise over right periorbital area; bruise right shoulder region; no generalized rash mouth - MMM, no lesions neck - no JVD heart - RRR, s1 s2 lungs - CTA b/l abd - soft NT ND BS+ ext - no edema, pulses 2+ b/l neuro - strength 5/5 x 4 extremities Results & Data Results & Data ([facility]) Vital Signs (Past 12 Hours) Vital Signs Temp Pulse Pulse Resp BP Pulse Ox 08/17/21 16:15 36.8 C 64 18 105/68 96 08/17/21 14:57 57 L 08/17/21 12:35 36.6 C 63 19 145/73 H 96 08/17/21 08:11 38.2 C H 96 H 18 125/66 95 08/17/21 08:00 66 Laboratory Results CPK 2466 Anaplamosis smear neg Lyme neg BMP, CBC findings noted all imaging from the ER visit noted and reviewed PG Care Time/CCT Total # of Minutes Spent Total Time Spent with Patient: Total time spent is greater than 50% in coordination of care (as documented) at patient's floor/unit and/or counseling patient: Coding Level of Care Code 12730 Subseq Hosp Care Lvl 3 Diagnoses Rhabdomyolysis M62.82 Elevated troponin R77.8 DM2 (diabetes mellitus, type 2) E11.9 Hypertension I10 Allergic rhinitis J30.9 Anxiety F41.9 Fever R50.9 Fall W19.XXXA Cognitive impairment R41.89 Mobitz (type) I (Wenckebach's) atrioventricular block I44.1
[2021-08-18] MEDS: LACTATED RINGER'S 1,000 ML IV SCH ×3 (00:16→16:36)
[2021-08-18 08:04] LABS: Albumin Globulin Ratio 1.6 (0.9-2); Albumin Level 3.5 gm/dl (3.4-5.0); BUN Creatinine Ratio 18.8 (10-20); Bilirubin,Total 1.1 mg/dl (0.2-1.0); Calcium 9.2 mg/dl (8.5-10.1); Creatinine Clr Calc Pharmacy 70.9 ml/min; Est GFR (Non-African American) 83.7 ml/min; Globulin 2.2 gm/dl (2.5-4.0); Potassium 3.2 mmol/L (3.5-5.1); Total Protein 5.7 gm/dl (6.0-8.3)
[2021-08-18] MEDS: CYANOCOBALAMIN (B-12) 500 MCG TABLET PO SCH (08:59)
[2021-08-18] MEDS: ESCITALOPRAM OXALATE 10 MG TAB PO SCH (08:59)
[2021-08-18] MEDS: lisinopril 10 MG TAB PO SCH ×2 (08:59→21:41)
[2021-08-18] MEDS: INSULIN ASPART PER UNIT SC SCH ×4 (09:02→20:34)
[2021-08-18] MEDS: THIAMINE HCL 100 MG TAB PO SCH ×2 (10:48→21:42)
[2021-08-18] MEDS: POTASSIUM CHLORIDE CRTAB 20 MEQ TABCR PO SCH ×3 (10:48→21:43)
[2021-08-18] MEDS: ACETAMINOPHEN 325 MG TAB PO PRN ×2 (10:53→21:41)
--- NOTE | 2021-08-18 18:29 | XCELERA ---
[id number] \\[id number]
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
[2021-08-19] MEDS: LACTATED RINGER'S 1,000 ML IV SCH ×3 (00:38→20:25)
[2021-08-19] MEDS: lisinopril 10 MG TAB PO SCH ×2 (08:35→20:27)
[2021-08-19] MEDS: POTASSIUM CHLORIDE CRTAB 20 MEQ TABCR PO SCH (08:36)
[2021-08-19] MEDS: CYANOCOBALAMIN (B-12) 500 MCG TABLET PO SCH (08:36)
[2021-08-19] MEDS: THIAMINE HCL 100 MG TAB PO SCH ×2 (08:36→20:28)
[2021-08-19] MEDS: ESCITALOPRAM OXALATE 10 MG TAB PO SCH (08:36)
[2021-08-19] MEDS ORDERED: ERGOCALCIFEROL 50,000 UNITS 1250 MCG CAP PO ONE (09:08)
[2021-08-19] MEDS: INSULIN ASPART PER UNIT SC SCH ×4 (09:46→20:45)
[2021-08-19 09:47] LABS: Basophils # (auto) 0.01 K/uL (0-0.2); Basophils % (auto) 0.2 %; Eosinophils % (auto) 3.6 %; Hematocrit (blood only) 37.2 % (37-47); Hemoglobin 12.7 g/dL (12.0-16.0); Immature Granulocytes # (auto) 0.01 K/uL (0.00-0.02); Immature Granulocytes % (auto) 0.2 %; Lymphocytes # (auto) 1.19 K/uL (1.2-3.4); Lymphocytes % (auto) 21.3 %; Mean Corpuscular Hemoglobin 29.7 pg (25-34); Mean Corpuscular Hgb Conc 34.1 g/dL (32-36); Mean Corpuscular Volume 86.9 fL (80-100); Mean Platelet Volume 10.3 fL (7.4-10.4); Monocytes # (auto) 0.38 K/uL (0.11-0.59); Monocytes % (auto) 6.8 %; Neutrophils # (auto) 3.79 K/uL (1.4-6.5); Neutrophils % (auto) 67.9 %; Platelet Count 173 K/uL (130-400); RDW Standard Deviation 38.3 fL (36.4-46.3); Red Blood Count 4.28 M/uL (4.2-5.4); White Blood Count 5.58 K/uL (4.8-10.8)
[2021-08-19 09:56] LABS: Potassium 3.9 mmol/L (3.5-5.1)
[2021-08-19 09:57] LABS: Albumin Level 3.7 gm/dl (3.4-5.0); Bilirubin Direct 0.1 mg/dl (0-0.2); Calcium 9.6 mg/dl (8.5-10.1); Creatinine Clr Calc Pharmacy 88.1 ml/min; Est GFR (African American) 103.2 ml/min; Magnesium 1.8 mg/dl (1.7-2.4); Total Protein 5.9 gm/dl (6.0-8.3)
--- NOTE | 2021-08-19 12:01 | Hospitalist Progress Note ---
Date of Service August 19, 2021 Assessment & Plan (1) Rhabdomyolysis: Plan: 2nd to fall (or syncope leading to fall). CPK level continues to be improving, now down to 1200 Continue isotonic IVF but decrease rate to 75mL/ hr holding home torsemide renal function and lytes normal Repeat CPK, BMP am. (2) Fall: Plan: uncertain if this was an accidental fall OR if she had syncope leading to a fall she does describe the initial fall being 2/2 her dog chasing a deer with the leash wrapped around her hand, but then scooted herself inside her house where she believes perhaps she passed out after that glucose was 177 upon presentation to the ER work-up thus far negative, but did have Mobitz 1 AV block during her first night here if higher level AV block is found perhaps an electrical cardiac issue caused the event lyme testing is negative since STOPPING THE VERAPAMIL (was on 240mg BID at home) no further Mobitz 1 seen ok to dc telemetry now Multiple imaging studies performed and all negative for acute trauma PT/OT evals pending but suspect she will need rehab I spoke extensively with her son today -- suspect she will need assisted living long-term, preferably in a facility designed for folks with dementia vs 28/09 care at home son to discuss this with his siblings (3) Elevated troponin: Plan: No obvious ischemic symptoms. Reports frequent walks at home without cp/dyspnea. EKG without ischemic changes. She did have runs of asymptomatic mobitz 1 in the middle of the night on hospital day #1 - none since (see above) Echocardiogram with preserved EF, normal wall motion, and normal valves. (4) Shoulder pain, right: Plan: Suspect RC tear vs at a minimum contusion to deltoid check shoulder xrays and hyumerus xrays consult Ortho add ice to shoulder, APAP prn pain, and shoulder sling (5) DM2 (diabetes mellitus, type 2): Plan: Hold glimepiride, place on Novolog SSI with accuchecks achs. A1c May --> 6.4%. Diabetic diet. (6) Hypertension: Plan: Continue lisinopril but increased to 10mg bid and BPs still high--> add on amlodipine 5mg daily dcd verapamil due to Mobitz type 1 rhythm seen. (7) Allergic rhinitis: Plan: Cotininue Flonase (8) Anxiety: Plan: Continue Lexapro. Son reports he thinks she had stopped taking this at home and she does not recall what pills she takes other than torsemide and her verapamil SOn has noticed a decline in her mental health recently and perhaps this is due to noncompliance with medication She is supposed to be on 15mg/day-this was restarted here and would await to assess response over the next 2 weeks before adding Remeron or increasing dose to 20mg (9) Fever: Plan: temp 38.2 x 1 only during the hospitalization no infectious source found ua not suspicious for UTI urine cx negative blood cx's negative lyme neg anaplasmosis smear negative; anaplasmosis DNA pending consider repeat COVID test with any additional fever spike (get a PCR) cxr without pneumonia CT chest/abd/pelvis -- no infectious source cont to follow (10) Cognitive impairment: Plan: Vit B12 level in July was 248 -- supplement B12 1000mcg daily. Thiamine level pending; started thiamine 200mg BID while awaiting level. TSH wnl last month. At minimum has mild cognitive impairment or early dementia. CT head from this admission without acute findings. Will need to keep outpatient appt for neurocognitive testing. son confirms this is scheduled for September. (11) Mobitz (type) I (Wenckebach's) atrioventricular block: Plan: seen on tele hospital day #1. no symptoms - was sleeping while it occurred. no higher level block noted on tele thus far verapamil stopped. avoid all AV annie agents. Echo wnl. strongly consider 30-day monitor post-discharge to exclude pauses, higher block, other dysrhythmia. (12) Hypokalemia: Plan: replaced and resolved (13) B12 deficiency: Plan: level in 07/2021 - 248 supplement 1000mcg po daily x 12 months while awaiting B1 level - supplement thiamine 200mg BID x 30 days (14) Vitamin D deficiency: Plan: 25-OH vit D level = 17 (07/2021) supplement vitamin D - ergocalciferol 80185 Units qweekly x 8 weeks Plan: son updated via phone today dispo planning-rehab possibly in [facility] near her son vs home with home health and 24/7 care Admission and Anticipated Discharge Date Admission Date: August 16, 2021 Subjective Pt c/o right shoulder pain and limited movement with lifting RUE at the shoulder. Otherwise denies headache or visual changes no CP or SOB, no neck pain, no nausea or abd pains. Has low appetite but no nausea. Is moving her bowels. No pain anywhere else. Tele with NSR, rates 50-60s Review of Systems Review of Systems: All systems reviewed & are unremarkable except as noted in HPI & below Physical Exam Constitutional: WD/WN, vitals as above Eyes: PERRL, conjunctivae normal, anicteric sclerae EOM intact bilaterally ENMT: external ear and nose normal, oropharynx normal Neck: trachea midline, no thyromegaly Respiratory: normal respiratory effort, lungs clear to auscultation Cardiovascular: RRR, no murmur, no edema Chest (Breasts): Chest: normal inspection of chest Gastrointestinal (Abdomen): normal bowel sounds, soft, nontender, no hepatosplenomegaly Musculoskeletal: Extremities: + limited ROM of extremities (with active ROM rt shoulder lmited in abduction and ext rotation); + extremities abnormal to inspection (Rt shoulder ecchymosis), no cyanosis and no clubbing Shoulder: + ecchymosis, + limited ROM, + joint line tenderness (over anterior shoulder on right) and + Neer's test positive; no deformity Skin: no rashes, warm and dry Neurologic: moves all extremities and awake; no focal motor deficits Psychiatric: Orientation: alert, oriented to person, oriented to place and cooperative Lymphatic: no lymphedema Results & Data Results & Data ([facility]) Vital Signs (Past 12 Hours) Vital Signs Temp Pulse Pulse Resp BP Pulse Ox 08/19/21 11:13 36.6 C 72 18 172/90 H 96 08/19/21 08:27 36.7 C 74 18 158/74 H 94 08/19/21 07:34 91 H 08/19/21 03:03 36.7 C 63 18 138/74 95 Laboratory Results 08/19/21 08/19/21 08/19/21 Range/Units 11:25 09:06 09:06 WBC 5.58 (4.8-10.8) K/uL RBC 4.28 (4.2-5.4) M/uL Hgb 12.7 (12.0-16.0) g/dL Hct 37.2 (37-47) % MCV 86.9 (80-100) fL MCH 29.7 (25-34) pg MCHC 34.1 (32-36) g/dL RDW Std Deviation 38.3 (36.4-46.3) fL RDW Coeff of Bong 12.0 (11.5-14.5) % Plt Count 173 (130-400) K/uL MPV 10.3 (7.4-10.4) fL Immature Gran % (Auto) 0.2 % Neut % (Auto) 67.9 % Lymph % (Auto) 21.3 % Nobles % (Auto) 6.8 % Eos % (Auto) 3.6 % Baso % (Auto) 0.2 % Neut # (Auto) 3.79 (1.4-6.5) K/uL Lymph # (Auto) 1.19 L (1.2-3.4) K/uL Nobles # (Auto) 0.38 (0.11-0.59) K/uL Eos # (Auto) 0.20 (0-0.5) K/uL Baso # (Auto) 0.01 (0-0.2) K/uL Immature Gran # (Auto) 0.01 (0.00-0.02) K/uL Sodium 138 (136-145) mmol/L Potassium 3.9 D (3.5-5.1) mmol/L Chloride 105 (98-107) mmol/L Carbon Dioxide 27 (21-32) mmol/L Anion Gap 6 (3-11) BUN 9 (6-23) mg/dl Creatinine 0.53 L (0.6-1.2) mg/dl Est Cr Clr Drug Dosing 88.1 ml/min Est GFR ( Amer) 103.2 ml/min Est GFR (Non-Af Amer) 89.0 ml/min BUN/Creatinine Ratio 17.0 (10-20) Glucose 142 H (70-99(Fasting)) mg/dl POC Glucose 116 H (70-99) mg/dl Calcium 9.6 (8.5-10.1) mg/dl Magnesium 1.8 (1.7-2.4) mg/dl Total Bilirubin 1.0 (0.2-1.0) mg/dl Direct Bilirubin 0.1 (0-0.2) mg/dl AST 61 H (13-39) U/L ALT 41 (7-52) U/L Alkaline Phosphatase 49 (34-104) U/L Total Creatine Kinase 1254 H (26-192) U/L Total Protein 5.9 L (6.0-8.3) gm/dl Albumin 3.7 (3.4-5.0) gm/dl 08/19/21 08/18/21 08/18/21 Range/Units 07:31 20:17 16:45 WBC (4.8-10.8) K/uL RBC (4.2-5.4) M/uL Hgb (12.0-16.0) g/dL Hct (37-47) % MCV (80-100) fL MCH (25-34) pg MCHC (32-36) g/dL RDW Std Deviation (36.4-46.3) fL RDW Coeff of Bong (11.5-14.5) % Plt Count (130-400) K/uL MPV (7.4-10.4) fL Immature Gran % (Auto) % Neut % (Auto) % Lymph % (Auto) % Nobles % (Auto) % Eos % (Auto) % Baso % (Auto) % Neut # (Auto) (1.4-6.5) K/uL Lymph # (Auto) (1.2-3.4) K/uL Nobles # (Auto) (0.11-0.59) K/uL Eos # (Auto) (0-0.5) K/uL Baso # (Auto) (0-0.2) K/uL Immature Gran # (Auto) (0.00-0.02) K/uL Sodium (136-145) mmol/L Potassium (3.5-5.1) mmol/L Chloride (98-107) mmol/L Carbon Dioxide (21-32) mmol/L Anion Gap (3-11) BUN (6-23) mg/dl Creatinine (0.6-1.2) mg/dl Est Cr Clr Drug Dosing ml/min Est GFR ( Amer) ml/min Est GFR (Non-Af Amer) ml/min BUN/Creatinine Ratio (10-20) Glucose (70-99(Fasting)) mg/dl POC Glucose 137 H 118 H 113 H (70-99) mg/dl Calcium (8.5-10.1) mg/dl Magnesium (1.7-2.4) mg/dl Total Bilirubin (0.2-1.0) mg/dl Direct Bilirubin (0-0.2) mg/dl AST (13-39) U/L ALT (7-52) U/L Alkaline Phosphatase (34-104) U/L Total Creatine Kinase (26-192) U/L Total Protein (6.0-8.3) gm/dl Albumin (3.4-5.0) gm/dl PG Care Time/CCT Total # of Minutes Spent Total Time Spent with Patient: Total time spent is greater than 50% in coordination of care (as documented) at patient's floor/unit and/or counseling patient: Coding Level of Care Code 35671 Subseq Hosp Care Lvl 3 Diagnoses Rhabdomyolysis M62.82 Fall W19.XXXA Elevated troponin R77.8 DM2 (diabetes mellitus, type 2) E11.9 Hypertension I10 Allergic rhinitis J30.9 Anxiety F41.9 Fever R50.9 Cognitive impairment R41.89 Mobitz (type) I (Wenckebach's) atrioventricular block I44.1 Hypokalemia E87.6 B12 deficiency E53.8 Vitamin D deficiency E55.9 Shoulder pain, right M25.511
[2021-08-19] MEDS: amLODIPine BESYLATE 5 MG TAB PO SCH (12:47)
--- NOTE | 2021-08-19 13:45 | XRay Report ---
XR shoulder RT min 2V routine CLINICAL HISTORY: fall,right shoulder pain COMPARISON: None. FINDINGS: Alignment of the right shoulder is anatomic. There is no acute fracture. Moderate osteoart hritis of the right acromioclavicular joint is noted. IMPRESSION: No acute fracture or dislocation within the right shoulder. ACT 112: Negative or not required by law. Electronically signed by: Rico Nunez M.D. 08/19/2021 1:44 PM
[2021-08-19] MEDS: ACETAMINOPHEN 325 MG TAB PO PRN (13:46)
--- NOTE | 2021-08-19 13:47 | XRay Report ---
XR humerus RT 2V CLINICAL HISTORY: fall,right shoulder pain TECHNIQUE: 2 radiographic views of the right humerus were obtained. Comparison: None available at the time of this dictation. FINDINGS: There is no evidence for fracture, subluxation or dislocation. The visualized portion of the shoulder and elbow joints are unremarkable. There is normal bone mineralization. The soft tissues are unremar kable. IMPRESSION: No acute osseous injury ACT 112: Negative or not required by law. Electronically signed by: Jake Ragsdale M.D. 08/19/2021 1:45 PM
[2021-08-19] MEDS ORDERED: Nursing to Pharmacy Communication SCH (14:45)
--- NOTE | 2021-08-19 16:28 | Orthopedic Consultation ---
Date of Service August 19, 2021 Assessment & Plan (1) Contusion of right shoulder: Xrays were reviewed today and i reassured her that she does not have a fracture. She has a shoulder contusion/possible rotator cuff tear. She can wear the sling for comfort acutely but I reassured her that it is okay to start using her arm for activities. Recommend therapy. Discussed a steroid injection with her but would recommend giving it more time and see how she does with therapy. History of Present Illness Reason for Consultation: . Requesting Physician: . Attending Physician: Doreen Wilder MD .Mary is a 81 year old right hand dominant patient who was admitted after a fall 3 days ago. She states she was walking her dog around her property when he saw another animal and pulled on the leash. She fell and thinks that she landed onto her right shoulder. Denies any pain in the arm prior to falling. She was able to sort of scoot or crawl to her porch and believes she was there for about 2-3 hours, passed out, and her son found her there. She describes pain mostly around the deltoid area/upper arm. Allergies Allergy/AdvReac Type Severity Reaction Status Date / Time clarithromycin Allergy Intermediate SICK AND Verified 08/16/21 17:48 HEADACHE doxycycline Allergy Intermediate SICK AND Verified 08/16/21 17:48 HEADACHE erythromycin base Allergy Intermediate HEADACHE, Verified 08/16/21 17:48 PAIN pollen extracts Allergy Intermediate itchy Verified 08/16/21 17:48 eyes, sneezing, runny nose nitrofurantoin Allergy Unknown Unknown rxn Verified 08/16/21 17:48 oxycodone Allergy Unknown Unknown rxn Verified 08/16/21 17:48 theophylline Allergy Unknown Unknown rxn Verified 08/16/21 17:48 tolmetin Allergy Unknown Unknown Verified 08/16/21 17:48 amoxicillin [From Augmentin] AdvReac Intermediate abd cramps Verified 08/16/21 17:48 / diarrhea clavulanic acid AdvReac Intermediate abd cramps Verified 08/16/21 17:48 [From Augmentin] / diarrhea Home Medications Medication Instructions Recorded Confirmed Type fluticasone propionate 50 2 spray INTNAS DAILY PRN #3 btl 03/21/20 08/16/21 Rx mcg/actuation nasal spray,suspension torsemide 10 mg tablet 10 mg PO DAILY #90 tab 08/30/20 08/16/21 Rx albuterol sulfate 90 mcg/actuation 2 puff INH Q6H PRN #3 inhaler 12/05/20 08/16/21 Rx aerosol inhaler (ProAir HFA) glimepiride 2 mg tablet 2 mg PO QAM #30 tab 02/24/21 08/16/21 Rx lisinopril 10 mg tablet 10 mg PO DAILY #90 tab 08/07/21 08/16/21 Rx escitalopram oxalate 10 mg tablet 15 mg PO DAILY #30 tab 08/15/21 08/16/21 Rx verapamil 240 mg 24 hr 240 mg PO BID #180 cap 08/15/21 08/16/21 Rx capsule,extended release Past Med/Surg History Medical History History of vitamin D deficiency Hyperparathyroidism Hypertension Pulsatile tinnitus Surgical History S/P cataract surgery S/P cholecystectomy S/P dilation and curettage S/P tubal ligation Family History Brother Hypertension Denies family history of Ovarian cancer Prostate cancer Myocardial infarction Breast cancer Colorectal cancer Social History Smoking Status: Never smoker Hx Alcohol Use: No Hx Substance Use: No Preferred Language: Azeri Communication Ability: Effective Visual Impairment: No Limitations Hearing Ability: Normal A Auxiliary Required: No Beliefs That Will Affect Care: None marital status: Current Living Situation: Alone current occupational status: retired How many Children do You have: 2 Other Information That Helps Us Care for You: No Feels Safe at Home: Yes Safety Concerns: Feels Safe At This Time Dental Care, Regularly: Yes Physical Activity Frequency: Daily Physical Activity Frequency Comment: walking Seatbelt Use: always Sunscreen Use: Yes Assistive Devices: None Assistive Devices Comment: pt now requiring a walker Review of Systems All systems reviewed & are unremarkable except as noted in HPI & below. Physical Exam . She is alert, slightly confused to which day it is now. No distress. She is able to actively raise her right arm overhead. Full range of motion of the shoulder. Internally rotates to about T12 level. Negative lift off test, negative belly press test. About 4/5 strength with resisted abduction and external rotation. She has some ecchymosis around the deltoid area and elbow, abrasion around the elbow. No pain withelbow or wrist motion. NVI. Results & Data Results & Data Laboratory Results . Diagnostic Findings . xrays of the shoulder and humerus were reviewed and show no fractures. PG Care Time/CCT Total # of Minutes Spent Total Time Spent with Patient: Total time spent is greater than 50% in coordination of care (as documented) at patient's floor/unit and/or counseling patient: Coding Level of Care Code 98051 Inpt Consult Level 3 Diagnoses Contusion of right shoulder S40.011A
[2021-08-20 06:24] LABS: Basophils # (auto) 0.01 K/uL (0-0.2); Basophils % (auto) 0.2 %; Eosinophils # (auto) 0.26 K/uL (0-0.5); Eosinophils % (auto) 4.9 %; Hematocrit (blood only) 38.8 % (37-47); Hemoglobin 13.3 g/dL (12.0-16.0); Lymphocytes # (auto) 1.48 K/uL (1.2-3.4); Lymphocytes % (auto) 27.7 %; Mean Corpuscular Hemoglobin 29.2 pg (25-34); Mean Corpuscular Hgb Conc 34.3 g/dL (32-36); Mean Corpuscular Volume 85.1 fL (80-100); Mean Platelet Volume 10.3 fL (7.4-10.4); Monocytes # (auto) 0.37 K/uL (0.11-0.59); Monocytes % (auto) 6.9 %; Neutrophils # (auto) 3.22 K/uL (1.4-6.5); Neutrophils % (auto) 60.3 %; Platelet Count 191 K/uL (130-400); RDW Coefficient of Variation 12.1 % (11.5-14.5); RDW Standard Deviation 37.4 fL (36.4-46.3); Red Blood Count 4.56 M/uL (4.2-5.4); White Blood Count 5.34 K/uL (4.8-10.8)
[2021-08-20 06:50] LABS: Albumin Globulin Ratio 1.6 (0.9-2); Albumin Level 3.7 gm/dl (3.4-5.0); BUN Creatinine Ratio 22.8 (10-20); Bilirubin,Total 0.9 mg/dl (0.2-1.0); Calcium 9.8 mg/dl (8.5-10.1); Creatinine Clr Calc Pharmacy 81.9 ml/min; Est GFR (African American) 100.8 ml/min; Est GFR (Non-African American) 86.9 ml/min; Globulin 2.3 gm/dl (2.5-4.0); Magnesium 1.9 mg/dl (1.7-2.4); Potassium 3.9 mmol/L (3.5-5.1)
[2021-08-20] MEDS: INSULIN ASPART PER UNIT SC SCH ×4 (09:39→21:04)
[2021-08-20] MEDS: LACTATED RINGER'S 1,000 ML IV SCH (10:43)
--- NOTE | 2021-08-20 12:16 | Hospitalist Progress Note ---
Date of Service August 20, 2021 Assessment & Plan (1) Rhabdomyolysis: Plan: 2nd to fall (or syncope leading to fall). CPK level continues to be improving, now down to 1161 dc IVFs, encourage po intake continue holding home torsemide but can likely restart tomorrow renal function and lytes normal Repeat CPK, BMP am. (2) Fall: Plan: uncertain if this was an accidental fall OR if she had syncope leading to a fall she does describe the initial fall being 2/2 her dog chasing a deer with the leash wrapped around her hand, but then scooted herself closer to her house where she believes perhaps she passed out after that glucose was 177 upon presentation to the ER work-up thus far negative, but did have Mobitz 1 AV block during her first night here no higher level AV block was found on tele for several days so doubtful that an electrical cardiac issue caused the event lyme testing is negative since STOPPING THE VERAPAMIL (was on 240mg BID at home) no further Mobitz 1 seen have since dcd telemetry Multiple imaging studies performed and all negative for acute trauma PT/OT evals --> OT recommends acute rehab, awaiting PT eval Discussions had with son and daughter by phone -- suspect she will need assisted living long-term, preferably in a facility designed for folks with dementia vs 28/09 care at home (3) Elevated troponin: Plan: No obvious ischemic symptoms. Reports frequent walks at home without cp/dyspnea. EKG without ischemic changes. She did have runs of asymptomatic mobitz 1 in the middle of the night on hospital day #1 - none since (see above) Echocardiogram with preserved EF, normal wall motion, and normal valves. (4) Shoulder pain, right: Plan: Suspect RC tear vs at a minimum contusion to deltoid shoulder xrays and humerus xrays neg for fracture consult Ortho appreciated-nothing further at this time Pain does seem improved with icing, tylenol, sling. Mobility slightly improved today continue ice to shoulder, APAP prn pain, and shoulder sling -f/u with Dr. Charlton as an outpt (5) DM2 (diabetes mellitus, type 2): Plan: Hold glimepiride, place on Novolog SSI with accuchecks achs. A1c May --> 6.4%. Diabetic diet. (6) Hypertension: Plan: Continue lisinopril but increased to 10mg bid and BPs were still high--> added on amlodipine 5mg daily BPs still somewhat elevated but asymptomatic dcd verapamil due to Mobitz type 1 rhythm seen. Will then add torsemide back likely tomorrow (7) Allergic rhinitis: Plan: Cotininue Flonase (8) Anxiety: Plan: Continue Lexapro. Son reports he thinks she had stopped taking this at home and she does not recall what pills she takes other than torsemide and her verapamil Son has noticed a decline in her mental health recently and perhaps this is due to noncompliance with medication She is supposed to be on 15mg/day-this was restarted here and would await to assess response over the next 2 weeks before adding Remeron or increasing Lexapro dose to 20mg (9) Fever: Plan: temp 38.2 x 1 only during the hospitalization no infectious source found ua not suspicious for UTI urine cx negative blood cx's negative lyme neg anaplasmosis smear negative; anaplasmosis DNA pending consider repeat COVID test with any additional fever spike (get a PCR) cxr without pneumonia CT chest/abd/pelvis -- no infectious source cont to follow (10) Cognitive impairment: Plan: Vit B12 level in July was 248 -- supplement B12 1000mcg daily. Thiamine level pending; started thiamine 200mg BID while awaiting level. TSH wnl last month. At minimum has mild cognitive impairment or early dementia. CT head from this admission without acute findings. Will need to keep outpatient appt for neurocognitive testing. son confirms this is scheduled for September. 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 no symptoms - was sleeping while it occurred. no higher level block noted on tele thus far verapamil stopped. avoid all AV annie agents. Echo wnl. strongly consider 30-day monitor post-discharge to exclude pauses, higher block, other dysrhythmia. (12) Hypokalemia: Plan: replaced and resolved (13) B12 deficiency: Plan: level in 07/2021 - 248 supplement 1000mcg po daily x 12 months while awaiting B1 level - supplement thiamine 200mg BID x 30 days (14) Vitamin D deficiency: Plan: 25-OH vit D level = 17 (07/2021) supplement vitamin D - ergocalciferol 29724 Units qweekly x 8 weeks Plan: dispo planning-rehab possibly in [place] area near her son vs home with home health and 28/09 care-awaiting insurance auth and bed availability Admission and Anticipated Discharge Date Admission Date: August 16, 2021 Subjective Pt has no complaints. Her right shoulder is still somewhat painful but her mobility is improved in it today. She remains pleasantly confused and doesn't remember seeing me yesterday. Review of Systems Review of Systems: All systems reviewed & are unremarkable except as noted in HPI & below Physical Exam Constitutional: WD/WN, vitals as above Eyes: PERRL, conjunctivae normal, anicteric sclerae EOM intact bilaterally ENMT: external ear and nose normal, oropharynx normal Neck: trachea midline, no thyromegaly Respiratory: normal respiratory effort, lungs clear to auscultation Cardiovascular: RRR, no murmur, no edema Chest (Breasts): Chest: normal inspection of chest Gastrointestinal (Abdomen): normal bowel sounds, soft, nontender, no hepatosplenomegaly Musculoskeletal: Extremities: + limited ROM of extremities (active ROM rt shoulder limited in abduction but improved from yesterday); + extremities abnormal to inspection (Rt shoulder ecchymosis now traveling down upper arm), no cyanosis and no clubbing Shoulder: + ecchymosis and + limited ROM; no deformity Skin: no rashes, warm and dry Neurologic: moves all extremities and awake; no focal motor deficits Psychiatric: Orientation: alert, oriented to person, oriented to place and cooperative; + not oriented to time Lymphatic: no lymphedema Results & Data Results & Data ([facility]) Vital Signs (Past 12 Hours) Vital Signs Temp Pulse Resp BP Pulse Ox 08/20/21 07:48 36.7 C 97 H 16 179/79 H 93 Laboratory Results 08/20/21 08/20/21 08/20/21 Range/Units 11:59 08:09 05:21 WBC (4.8-10.8) K/uL RBC (4.2-5.4) M/uL Hgb (12.0-16.0) g/dL Hct (37-47) % MCV (80-100) fL MCH (25-34) pg MCHC (32-36) g/dL RDW Std Deviation (36.4-46.3) fL RDW Coeff of Bong (11.5-14.5) % Plt Count (130-400) K/uL MPV (7.4-10.4) fL Immature Gran % (Auto) % Neut % (Auto) % Lymph % (Auto) % [place] % (Auto) % Eos % (Auto) % Baso % (Auto) % Neut # (Auto) (1.4-6.5) K/uL Lymph # (Auto) (1.2-3.4) K/uL [place] # (Auto) (0.11-0.59) K/uL Eos # (Auto) (0-0.5) K/uL Baso # (Auto) (0-0.2) K/uL Immature Gran # (Auto) (0.00-0.02) K/uL Sodium 137 (136-145) mmol/L Potassium 3.9 (3.5-5.1) mmol/L Chloride 105 (98-107) mmol/L Carbon Dioxide 26 (21-32) mmol/L Anion Gap 6 (3-11) BUN 13 (6-23) mg/dl Creatinine 0.57 L (0.6-1.2) mg/dl Est Cr Clr Drug Dosing 81.9 ml/min Est GFR ( Amer) 100.8 ml/min Est GFR (Non-Af Amer) 86.9 ml/min BUN/Creatinine Ratio 22.8 H (10-20) Glucose 127 H (70-99(Fasting)) mg/dl POC Glucose 127 H 127 H (70-99) mg/dl Calcium 9.8 (8.5-10.1) mg/dl Magnesium 1.9 (1.7-2.4) mg/dl Total Bilirubin 0.9 (0.2-1.0) mg/dl AST 61 H (13-39) U/L ALT 44 (7-52) U/L Alkaline Phosphatase 51 (34-104) U/L Total Creatine Kinase 1161 H (26-192) U/L Total Protein 6.0 (6.0-8.3) gm/dl Albumin 3.7 (3.4-5.0) gm/dl Globulin 2.3 L (2.5-4.0) gm/dl Albumin/Globulin Ratio 1.6 (0.9-2) 08/20/21 08/19/21 08/19/21 Range/Units 05:21 20:39 17:09 WBC 5.34 (4.8-10.8) K/uL RBC 4.56 (4.2-5.4) M/uL Hgb 13.3 (12.0-16.0) g/dL Hct 38.8 (37-47) % MCV 85.1 (80-100) fL MCH 29.2 (25-34) pg MCHC 34.3 (32-36) g/dL RDW Std Deviation 37.4 (36.4-46.3) fL RDW Coeff of Bong 12.1 (11.5-14.5) % Plt Count 191 (130-400) K/uL MPV 10.3 (7.4-10.4) fL Immature Gran % (Auto) 0.0 % Neut % (Auto) 60.3 % Lymph % (Auto) 27.7 % [place] % (Auto) 6.9 % Eos % (Auto) 4.9 % Baso % (Auto) 0.2 % Neut # (Auto) 3.22 (1.4-6.5) K/uL Lymph # (Auto) 1.48 (1.2-3.4) K/uL [place] # (Auto) 0.37 (0.11-0.59) K/uL Eos # (Auto) 0.26 (0-0.5) K/uL Baso # (Auto) 0.01 (0-0.2) K/uL Immature Gran # (Auto) 0.00 (0.00-0.02) K/uL Sodium (136-145) mmol/L Potassium (3.5-5.1) mmol/L Chloride (98-107) mmol/L Carbon Dioxide (21-32) mmol/L Anion Gap (3-11) BUN (6-23) mg/dl Creatinine (0.6-1.2) mg/dl Est Cr Clr Drug Dosing ml/min Est GFR ( Amer) ml/min Est GFR (Non-Af Amer) ml/min BUN/Creatinine Ratio (10-20) Glucose (70-99(Fasting)) mg/dl POC Glucose 133 H 98 (70-99) mg/dl Calcium (8.5-10.1) mg/dl Magnesium (1.7-2.4) mg/dl Total Bilirubin (0.2-1.0) mg/dl AST (13-39) U/L ALT (7-52) U/L Alkaline Phosphatase (34-104) U/L Total Creatine Kinase (26-192) U/L Total Protein (6.0-8.3) gm/dl Albumin (3.4-5.0) gm/dl Globulin (2.5-4.0) gm/dl Albumin/Globulin Ratio (0.9-2) PG Care Time/CCT Total # of Minutes Spent Total Time Spent with Patient: Total time spent is greater than 50% in coordination of care (as documented) at patient's floor/unit and/or counseling patient: Coding Level of Care Code 77621 Subseq Hosp Care Lvl 2 Diagnoses Rhabdomyolysis M62.82 Fall W19.XXXA Elevated troponin R77.8 Shoulder pain, right M25.511 DM2 (diabetes mellitus, type 2) E11.9 Hypertension I10 Allergic rhinitis J30.9 Anxiety F41.9 Fever R50.9 Cognitive impairment R41.89 Mobitz (type) I (Wenckebach's) atrioventricular block I44.1 Hypokalemia E87.6 B12 deficiency E53.8 Vitamin D deficiency E55.9
[2021-08-20] MEDS: THIAMINE HCL 100 MG TAB PO SCH ×2 (13:54→21:02)
[2021-08-20] MEDS: CYANOCOBALAMIN (B-12) 500 MCG TABLET PO SCH (13:54)
[2021-08-20] MEDS: amLODIPine BESYLATE 5 MG TAB PO SCH (13:55)
[2021-08-20] MEDS: lisinopril 10 MG TAB PO SCH ×2 (13:55→21:02)
[2021-08-20] MEDS: ESCITALOPRAM OXALATE 10 MG TAB PO SCH (13:55)
[2021-08-21 06:47] LABS: Albumin Globulin Ratio 1.6 (0.9-2); Albumin Level 3.6 gm/dl (3.4-5.0); BUN Creatinine Ratio 30.5 (10-20); Bilirubin,Total 0.8 mg/dl (0.2-1.0); Calcium 9.7 mg/dl (8.5-10.1); Creatinine Clr Calc Pharmacy 79.1 ml/min; Est GFR (African American) 99.6 ml/min; Globulin 2.2 gm/dl (2.5-4.0); Total Protein 5.8 gm/dl (6.0-8.3)
[2021-08-21] MEDS: CYANOCOBALAMIN (B-12) 500 MCG TABLET PO SCH (09:16)
[2021-08-21] MEDS: ESCITALOPRAM OXALATE 10 MG TAB PO SCH (09:16)
[2021-08-21] MEDS: lisinopril 10 MG TAB PO SCH ×2 (09:16→22:06)
[2021-08-21] MEDS: amLODIPine BESYLATE 5 MG TAB PO SCH (09:16)
[2021-08-21] MEDS: THIAMINE HCL 100 MG TAB PO SCH ×2 (09:17→22:06)
[2021-08-21] MEDS: TORSEMIDE 10 MG TAB PO SCH (12:27)
[2021-08-21] MEDS: INSULIN ASPART PER UNIT SC SCH ×3 (13:21→22:05)
--- NOTE | 2021-08-21 15:46 | Hospitalist Progress Note ---
Date of Service August 21, 2021 Assessment & Plan (1) Rhabdomyolysis: Plan: 2nd to fall (or syncope leading to fall). CPK level continues to be improving, now down to 607 Was txd with IVFs for 2 days and now stopped have since resumed home torsemide renal function and lytes normal (2) Fall: Plan: uncertain if this was an accidental fall OR if she had syncope leading to a fall she does describe the initial fall being 2/2 her dog chasing a deer with the leash wrapped around her hand, but then scooted herself closer to her house where she believes perhaps she passed out after that glucose was 177 upon presentation to the ER work-up thus far negative, but did have Mobitz 1 AV block during her first night here no higher level AV block was found on tele for several days so doubtful that an electrical cardiac issue caused the event lyme testing is negative since STOPPING THE VERAPAMIL (was on 240mg BID at home) no further Mobitz 1 seen have since dcd telemetry Multiple imaging studies performed and all negative for acute trauma PT/OT evals --> OT recommends acute rehab, awaiting PT eval Discussions had with son and daughter by phone -- suspect she will need assisted living long-term, preferably in a facility designed for folks with dementia vs 28/09 care at home (3) Elevated troponin: Plan: No obvious ischemic symptoms. Reports frequent walks at home without cp/dyspnea. EKG without ischemic changes. She did have runs of asymptomatic mobitz 1 in the middle of the night on hospital day #1 - none since (see above) Echocardiogram with preserved EF, normal wall motion, and normal valves. (4) Shoulder pain, right: Plan: Suspect RC tear vs at a minimum contusion to deltoid shoulder xrays and humerus xrays neg for fracture consult Ortho appreciated-nothing further at this time Pain does seem improved with icing, tylenol, sling. Mobility improved again today and seems more consistent with deltoid contusion continue ice to shoulder, APAP prn pain, and shoulder sling -f/u with Dr. Beltran Barksdale of Orthopedics as an outpt (5) DM2 (diabetes mellitus, type 2): Plan: Hold glimepiride, place on Novolog SSI with accuchecks achs. A1c May --> 6.4%. Diabetic diet. Can resume glimepiride on dc (6) Hypertension: Plan: Continue lisinopril but increased to 10mg bid and BPs were still high--> added on amlodipine 5mg daily BPs still somewhat elevated but asymptomatic dcd verapamil due to Mobitz type 1 rhythm seen. restart home torsemide (7) Allergic rhinitis: Plan: Cotininue Flonase (8) Anxiety: Plan: Continue Lexapro. Son reports he thinks she had stopped taking this at home and she does not recall what pills she takes other than torsemide and her verapamil Son has noticed a decline in her mental health recently and perhaps this is due to noncompliance with medication She is supposed to be on 15mg/day-this was restarted here and would await to assess response over the next 2 weeks before adding Remeron or increasing Lexapro dose to 20mg (9) Fever: Plan: temp 38.2 x 1 only during the hospitalization no infectious source found ua not suspicious for UTI urine cx negative blood cx's negative lyme neg anaplasmosis smear negative; anaplasmosis DNA pending consider repeat COVID test with any additional fever spike (get a PCR) cxr without pneumonia CT chest/abd/pelvis -- no infectious source (10) Cognitive impairment: Plan: Vit B12 level in July was 248 -- supplement B12 1000mcg daily. Thiamine level pending; started thiamine 200mg BID while awaiting level. TSH wnl last month. At minimum has mild cognitive impairment or early dementia. CT head from this admission without acute findings. Will need to keep outpatient appt for neurocognitive testing. son confirms this is scheduled for September. 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 no symptoms - was sleeping while it occurred. no higher level block noted on tele thus far verapamil stopped. avoid all AV annie agents. Echo wnl. strongly consider 30-day monitor post-discharge to exclude pauses, higher block, other dysrhythmia. This can be done at the rehab (12) Hypokalemia: Plan: replaced and resolved (13) B12 deficiency: Plan: level in 07/2021 - 248 supplement 1000mcg po daily x 12 months while awaiting B1 level - supplement thiamine 200mg BID x 30 days (14) Vitamin D deficiency: Plan: 25-OH vit D level = 17 (07/2021) supplement vitamin D - ergocalciferol 51466 Units qweekly x 8 weeks Plan: DVT prophylaxis--> SCDs. No AC due to hematoma on face and shoulder dispo planning-insurance auth approved for SNF at [facility] in [place], [place]. Son to pick her up in the morning and take her there Discussed her care with her daughter Shannon on the phone Admission and Anticipated Discharge Date Admission Date: August 16, 2021 Subjective Pt reports she feels less confused today. Still some soreness in right shoulder but has improved mobility. No other concerns other than she is worried about not having clothes for rehab and can't find her Rx glasses. Review of Systems Review of Systems: All systems reviewed & are unremarkable except as noted in HPI & below Physical Exam Constitutional: WD/WN, vitals as above Eyes: + anicteric sclerae ENMT: external ear and nose normal, oropharynx normal Neck: trachea midline, no thyromegaly Respiratory: normal respiratory effort, lungs clear to auscultation Cardiovascular: RRR, no murmur, no edema Chest (Breasts): Chest: normal inspection of chest Gastrointestinal (Abdomen): normal bowel sounds, soft, nontender, no hepatosplenomegaly Musculoskeletal: Extremities: + limited ROM of extremities (active ROM rt shoulder limited in abduction but improved from yesterday); + extremities abnormal to inspection (Rt shoulder ecchymosis now traveling down upper arm), no cyanosis and no clubbing Shoulder: + ecchymosis and + limited ROM; no deformity Skin: no rashes, warm and dry Neurologic: moves all extremities and awake; no focal motor deficits Psychiatric: Orientation: alert, oriented to person, oriented to place and cooperative; + not oriented to time Lymphatic: no lymphedema Results & Data Results & Data ([facility]) Vital Signs (Past 12 Hours) Vital Signs Temp Pulse Resp BP BP Pulse Ox 08/21/21 15:38 36.5 C 80 16 147/81 H 97 08/21/21 08:23 36.7 C 82 16 153/75 H 94 Laboratory Results 08/21/21 08/21/21 08/21/21 Range/Units 11:44 07:48 05:59 Sodium 135 L (136-145) mmol/L Potassium 4.0 (3.5-5.1) mmol/L Chloride 103 (98-107) mmol/L Carbon Dioxide 26 (21-32) mmol/L Anion Gap 6 (3-11) BUN 18 (6-23) mg/dl Creatinine 0.59 L (0.6-1.2) mg/dl Est Cr Clr Drug Dosing 79.1 ml/min Est GFR ( Amer) 99.6 ml/min Est GFR (Non-Af Amer) 86.0 ml/min BUN/Creatinine Ratio 30.5 H (10-20) Glucose 153 H (70-99(Fasting)) mg/dl POC Glucose 124 H 132 H (70-99) mg/dl Calcium 9.7 (8.5-10.1) mg/dl Total Bilirubin 0.8 (0.2-1.0) mg/dl AST 49 H (13-39) U/L ALT 43 (7-52) U/L Alkaline Phosphatase 50 (34-104) U/L Total Creatine Kinase 607 H (26-192) U/L Total Protein 5.8 L (6.0-8.3) gm/dl Albumin 3.6 (3.4-5.0) gm/dl Globulin 2.2 L (2.5-4.0) gm/dl Albumin/Globulin Ratio 1.6 (0.9-2) 08/20/21 08/20/21 Range/Units 20:48 17:19 Sodium (136-145) mmol/L Potassium (3.5-5.1) mmol/L Chloride (98-107) mmol/L Carbon Dioxide (21-32) mmol/L Anion Gap (3-11) BUN (6-23) mg/dl Creatinine (0.6-1.2) mg/dl Est Cr Clr Drug Dosing ml/min Est GFR ( Amer) ml/min Est GFR (Non-Af Amer) ml/min BUN/Creatinine Ratio (10-20) Glucose (70-99(Fasting)) mg/dl POC Glucose 127 H 109 H (70-99) mg/dl Calcium (8.5-10.1) mg/dl Total Bilirubin (0.2-1.0) mg/dl AST (13-39) U/L ALT (7-52) U/L Alkaline Phosphatase (34-104) U/L Total Creatine Kinase (26-192) U/L Total Protein (6.0-8.3) gm/dl Albumin (3.4-5.0) gm/dl Globulin (2.5-4.0) gm/dl Albumin/Globulin Ratio (0.9-2) PG Care Time/CCT Total # of Minutes Spent Total Time Spent with Patient: Total time spent is greater than 50% in coordination of care (as documented) at patient's floor/unit and/or counseling patient: Coding Level of Care Code 67121 Subseq Hosp Care Lvl 2 Diagnoses Rhabdomyolysis M62.82 Fall W19.XXXA Elevated troponin R77.8 Shoulder pain, right M25.511 DM2 (diabetes mellitus, type 2) E11.9 Hypertension I10 Allergic rhinitis J30.9 Anxiety F41.9 Fever R50.9 Cognitive impairment R41.89 Mobitz (type) I (Wenckebach's) atrioventricular block I44.1 Hypokalemia E87.6 B12 deficiency E53.8 Vitamin D deficiency E55.9
[2021-08-21] MEDS ORDERED: ERGOCALCIFEROL 50,000 UNITS 1250 MCG CAP PO SCH (16:00)
[2021-08-22] MEDS: THIAMINE HCL 100 MG TAB PO SCH (07:18)
[2021-08-22] MEDS: CYANOCOBALAMIN (B-12) 500 MCG TABLET PO SCH (07:18)
[2021-08-22] MEDS: ESCITALOPRAM OXALATE 10 MG TAB PO SCH (07:18)
[2021-08-22] MEDS: TORSEMIDE 10 MG TAB PO SCH (07:18)
[2021-08-22] MEDS: lisinopril 10 MG TAB PO SCH (07:18)
--- NOTE | 2021-08-22 07:18 | Discharge Summary ---
Date of Service August 22, 2021 Admission HPI Per Admitting Provider Mary Miner is an 81 y/o female with PMH of hypertension, diabetes, asthma, allergic rhinitis, OA, anxiety, and early stages of dementia who presents today for evaluation after a fall. Patient was out with her dog today, unsure exactly how she fell with her dog dragged her or she tripped but regardless patient was down on her porch for 2-4 hours before her son arrived to her home and found her like this. She is complaining of back pain, which is chronic issue for her otherwise no pain elsewhere, no chest pain, palpitations, shortness of breath, abdominal pain. Labs significant for HS trop 155.4, CK 1231, potassium 3.3, T bili 1.4. Imaging unrevealing for any fractures, bleeds, or other acute process. Principal Diagnosis Fall, shoulder and facial contusion, rhabdomyolysis Discharge Exam Constitutional WD/WN, vitals as above Eyes + anicteric sclerae ENMT external ear and nose normal, oropharynx normal Neck trachea midline, no thyromegaly Respiratory normal respiratory effort, lungs clear to auscultation Cardiovascular RRR, no murmur, no edema Chest (Breasts) Chest: normal inspection of chest Gastrointestinal (Abdomen) normal bowel sounds, soft, nontender, no hepatosplenomegaly Musculoskeletal Extremities: + limited ROM of extremities (active ROM rt shoulder limited in abduction but improved from yesterday); + extremities abnormal to inspection (Rt shoulder ecchymosis now traveling down upper arm), no cyanosis and no clubbing Shoulder: + ecchymosis and + limited ROM; no deformity Skin no rashes, warm and dry Neurologic moves all extremities and awake; no focal motor deficits Psychiatric Orientation: alert, oriented to person, oriented to place and cooperative; + not oriented to time Lymphatic no lymphedema Discharge Data Allergies Allergy/AdvReac Type Severity Reaction Status Date / Time clarithromycin Allergy Intermediate SICK AND Verified 08/16/21 17:48 HEADACHE doxycycline Allergy Intermediate SICK AND Verified 08/16/21 17:48 HEADACHE erythromycin base Allergy Intermediate HEADACHE, Verified 08/16/21 17:48 PAIN pollen extracts Allergy Intermediate itchy Verified 08/16/21 17:48 eyes, sneezing, runny nose nitrofurantoin Allergy Unknown Unknown rxn Verified 08/16/21 17:48 oxycodone Allergy Unknown Unknown rxn Verified 08/16/21 17:48 theophylline Allergy Unknown Unknown rxn Verified 08/16/21 17:48 tolmetin Allergy Unknown Unknown Verified 08/16/21 17:48 amoxicillin [From Augmentin] AdvReac Intermediate abd cramps Verified 08/16/21 17:48 / diarrhea clavulanic acid AdvReac Intermediate abd cramps Verified 08/16/21 17:48 [From Augmentin] / diarrhea Consultations 08/16/21 18:56 ED Decision to Admit Stat 08/19/21 12:01 Consult Orthopedic Surgery Routine Ordered Studies 08/16/21 16:13 CT cervical spine wo con Stat CT chest diagnostic w con Stat CT facial bones wo con Stat 08/16/21 16:14 CT abd pelvis IV con only Stat CT lumbar spine w con Stat CT thoracic spine w con Stat 08/16/21 17:13 CT head/brain wo con Stat Hospital Course (1) Rhabdomyolysis: 2nd to fall (or syncope leading to fall). CPK level continues to be improving, now down to 607 Was txd with IVFs for 2 days and now stopped have since resumed home torsemide renal function and lytes normal (2) Fall: uncertain if this was an accidental fall OR if she had syncope leading to a fall she does describe the initial fall being 2/2 her dog chasing a deer with the leash wrapped around her hand, but then scooted herself closer to her house where she believes perhaps she passed out after that glucose was 177 upon presentation to the ER work-up thus far negative, but did have Mobitz 1 AV block during her first night here no higher level AV block was found on tele for several days so doubtful that an electrical cardiac issue caused the event lyme testing is negative since STOPPING THE VERAPAMIL (was on 240mg BID at home) no further Mobitz 1 seen have since dcd telemetry Multiple imaging studies performed and all negative for acute trauma PT/OT evals --> recommend rehab Discussions had with son and daughter by phone -- suspect she will need assisted living long-term, preferably in a facility designed for folks with dementia vs 24/ care at home. But first go to rehab (3) Elevated troponin: No obvious ischemic symptoms. Reports frequent walks at home without cp/dyspnea. EKG without ischemic changes. She did have runs of asymptomatic mobitz 1 in the middle of the night on hospital day #1 - none since (see above) Echocardiogram with preserved EF, normal wall motion, and normal valves. (4) Shoulder pain, right: Suspect RC tear vs at a minimum contusion to deltoid shoulder xrays and humerus xrays neg for fracture consult Ortho appreciated-nothing further at this time Pain does seem improved with icing, tylenol, sling. Mobility improved again today and seems more consistent with deltoid contusion continue ice to shoulder, APAP prn pain, and shoulder sling -f/u with Dr. Beltran Barksdale of Orthopedics as an outpt after discharge from rehab in 2-3 weeks (5) DM2 (diabetes mellitus, type 2): Hold glimepiride, place on Novolog SSI with accuchecks achs. A1c July --> 6.4%. Diabetic diet. Can resume glimepiride on dc (6) Hypertension: Continue lisinopril but increased to 10mg bid and BPs were still high--> added on amlodipine 5mg daily BPs still somewhat elevated but asymptomatic dcd verapamil due to Mobitz type 1 rhythm seen. restart home torsemide (7) Allergic rhinitis: Cotininue Flonase (8) Anxiety: Continue Lexapro. Son reports he thinks she had stopped taking this at home and she does not recall what pills she takes other than torsemide and her verapamil Son has noticed a decline in her mental health recently and perhaps this is due to noncompliance with medication She is supposed to be on 15mg/day-this was restarted here and would await to assess response over the next 2 weeks before adding Remeron or increasing Lexapro dose to 20mg (9) Fever: temp 38.2 x 1 only during the hospitalization no infectious source found ua not suspicious for UTI urine cx negative blood cx's negative lyme neg anaplasmosis smear negative; anaplasmosis DNA pending repeat COVID test prior to discharge also negative cxr without pneumonia CT chest/abd/pelvis -- no infectious source (10) Cognitive impairment: Vit B12 level in July was 248 -- supplement B12 1000mcg daily. Thiamine level pending; started thiamine 200mg BID while awaiting level. TSH wnl last month. At minimum has mild cognitive impairment or early dementia. CT head from this admission without acute findings. Will need to keep outpatient appt for neurocognitive testing. son confirms this is scheduled for September. Appreciate Speech Therapy evaluation and recommendations -could enroll in outpt Speech Therapy for cognitive decline and paraphasia expressive speech disorder (11) Mobitz (type) I (Wenckebach's) atrioventricular block: seen on tele hospital day #1. no symptoms - was sleeping while it occurred. no higher level block noted on tele thus far verapamil stopped. avoid all AV annie agents. Echo wnl. strongly consider 30-day monitor post-discharge to exclude pauses, higher block, other dysrhythmia. This can be done at the rehab (12) Hypokalemia: replaced and resolved (13) B12 deficiency: level in 07/2021 - 248 supplement 1000mcg po daily x 12 months while awaiting B1 level - supplement thiamine 200mg BID x 30 days (14) Vitamin D deficiency: 25-OH vit D level = 17 (07/2021) supplement vitamin D - ergocalciferol 92309 Units qweekly x 8 weeks DVT prophylaxis--> SCDs. No AC due to hematoma on face and shoulder dispo planning-insurance auth approved for SNF at [facility] in [place], [place]. Son to pick her up this morning and take her there Total Time Total Time Spent Total Time Spent (In Minutes): 35 min Discharge Plan Discharge Items Patient Disposition: Transfer Snf Fac Reason For Visit: RHABDO, ELEVATED TROPONIN AFTER FALL Discharge Diagnosis: Fall, contusions to face and shoulder, rhabdomyolysis, Mobitz type 1 second degree heart block Condition on Discharge: Fair Activity: As commented below Lifting: Gradually increase as tolerated Bathing: No limitations Exercise/Sports: Gradually increase as tolerated Driving/Machine Use: No driving Weightbearing: Full weightbearing Non-emergency contact: Primary Care Provider Call non-emergency contact if: you have any medication questions, your symptoms worsen and your pain is not controlled Follow-up/Referrals: Slava Barksdale MD [Primary Care Provider] - (Follow up with PCP within 2 weeks after discharge from rehab facility) Beltran Barksdale MD [Physician] - (Follow up within 2 weeks after discharge from rehab) Diet: Carb Consistent or DM2 and Heart Healthy Addtl Attending Provider Instructions: You were admitted after sustaining a fall resulting in contusions to your face and right shoulder. You also had a mild case of rhabdomyolysis (muscle breakdown) from laying on the ground for so long. You are improving but need rehab to get better. Your verapamil was stopped due to low heart rates. You had amlodipine added and your lisinopril dose increased to better control your blood pressure since the verapamil was stopped. Your vitamin D and B12 levels were low and are being replaced. Your vitamin B1 level is still pending but thiamine/B1 supplement was also added to your regim en. Pending Studies at Discharge: Yes (Vitamin B1 level) Stand-Alone Forms: My [facility] Skilled Items Patient informed of condition?: Yes DNR: No Discharge Level of Care: Skilled Communicable Disease: No Discharge Prognosis: Improving Lines: None Urinary Catheter: No Medications and DC Order Prescriptions: New acetaminophen 325 mg Tablet 650 mg PO Q4H PRN (Reason: pain) Qty: 30 RF: 0 amlodipine [Norvasc] 5 mg Tablet 5 mg PO QAM Qty: 30 RF: 0 cyanocobalamin (vitamin B-12) 1,000 mcg capsule 1,000 mcg PO DAILY Qty: 30 RF: 0 thiamine HCl (vitamin B1) 100 mg Tablet 200 mg PO BID Qty: 120 RF: 0 ergocalciferol (vitamin D2) 1,250 mcg (50,000 unit) Capsule 50,000 unit PO Q7D Qty: 8 RF: 0 Continued torsemide 10 mg tablet 10 mg PO DAILY Qty: 90 RF: 3 glimepiride 2 mg tablet 2 mg PO QAM Qty: 30 RF: 2 escitalopram oxalate 10 mg tablet 15 mg PO DAILY Qty: 30 RF: 2 albuterol sulfate [ProAir HFA] 90 mcg/actuation HFA aerosol inhaler 2 puff INH Q6H PRN (Reason: shortness of breath or wheezing) Qty: 3 RF: 3 fluticasone propionate 50 mcg/actuation spray,suspension 2 spray INTNAS DAILY PRN (Reason: allergy symptoms) Qty: 3 RF: 3 Changed lisinopril 10 mg tablet 20 mg PO DAILY Qty: 90 RF: 3 Discontinued verapamil 240 mg capsule,ext rel. pellets 24 hr 240 mg PO BID Qty: 180 RF: 3 Discharge Orders: Discharge Order (Routine); Ordered 08/22/21 Ordered By: Doreen Wilder Admission Data Admit Date/Time: 06/11/22 19:42 Attending Provider: Doreen Wilder Admit Provider: Andrea Siddiqui Primary Care Provider: Slava Barksdale Other Providers: Arpit Padilla ; Luis Casiano Coding Level of Care Code D/C DAY MANAGEMENT >30 MINS Diagnoses Rhabdomyolysis M62.82 Fall W19.XXXA Elevated troponin R77.8 Shoulder pain, right M25.511 DM2 (diabetes mellitus, type 2) E11.9 Hypertension I10 Allergic rhinitis J30.9 Anxiety F41.9 Fever R50.9 Cognitive impairment R41.89 Mobitz (type) I (Wenckebach's) atrioventricular block I44.1 Hypokalemia E87.6 B12 deficiency E53.8 Vitamin D deficiency E55.9
== END 2021-08-22 10:11 | DRG 558 ==
LOC: ED 15:59 → 2W 19:42 → SUATTDRO 19:42 → 2W 21:15 → 3N 08-19 16:26